=== PATIENT | female | born 1975 | race Caucasian/White ===

== ENCOUNTER 2019-04-21 10:45 | Outpatient (CLI) | payer OTHER, SELFPAY ==
--- NOTE | 2019-04-21 | ECHO_ITS ---
Patient Info Name: Deedee Veliz Age: 43 years : 1975 Gender: Female Ht: 66 in Wt: 150 lbs BSA: 1.79 m2 HR: 81 bpm BP: 122 / 77 mmHg Heart Rhythm: Sinus Rhythm Technical Quality: Good Exam Date: 04/21/2019 12:26 PM Exam Location: [facility] Patient Status: Outpatient Admit Date: 04/21/2019 Staff Ordering Physician: Samir Navarrete MD Industrial Editor: Vi Phelps RDCS Attending Provider: Samir Navarrete MD Exam Type: CA echo doppler color flow Study Info Complete two-dimensional, color flow and Doppler transthoracic echocardiogram is performed. Summary 1. Essentially unremarkable echocardiogram. 2. Trivial amount of tricuspid regurgitation is within physiologic normal limits. Left Ventricle Left ventricular chamber dimension is normal. Left ventricular systolic function is normal, estimated at 60-65%. The left ventricular diastolic function is normal. Right Ventricle Right ventricular chamber dimension is normal. Left Atria Left atrial chamber dimension is normal. Right Atria Right atrial chamber dimension is normal. Aortic Valve The aortic valve is trileaflet. Pulmonic Valve The pulmonic valve is normal. Mitral Valve The mitral valve has normal leaflets. Tricuspid Valve The tricuspid valve leaflets are normal. There is trace tricuspid valve regurgitation. Pericardium/Pleural The pericardium appears normal. Aorta The aortic root size at the sinus of Valsalva is normal. Left Ventricular Outflow Tract Name Value Normal LVOT 2D LVOT Diameter 2.0 cm LVOT Doppler LVOT Peak Gradient 6 mmHg LVOT Mean Gradient 3 mmHg LVOT VTI 23 cm LVOT VTI/AV VTI Ratio 0.8 LVOT Stroke Volume 74 ml LVOT CO 16.2 l/min LVOT CI 9.1 l/min/m2 Pulmonic Valve Name Value Normal PV Doppler PV Peak Gradient 3 mmHg Mitral Valve Name Value Normal MV Doppler MV Decel Wood 445 cm/s2 MV PHT 56 ms MV Area (PHT) 3.9 cm2 4.0-5.0 MV Diastolic Function MV E Peak Velocity 86 cm/s MV A Peak Velocity 51 cm/s MV E/A 1.7 MV Decel Time 193 ms Tricuspid Valve
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
== END 2019-04-21 10:46 | disposition home or self-care (01) ==
PROVIDERS: PCP Family Medicine; Visit Provider Psychiatry & Neurology Neurology
DX: R55 Syncope and collapse (principal)
CPT/HCPCS: 93306; 95816

== ENCOUNTER 2021-09-08 12:33 | Emergency (ER) | payer OTHER, SELFPAY ==
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
[2021-09-08 12:43] VITALS: BP 150/90; PULSE 91; RESP 18; TEMP 36.8; O2SAT 99
[2021-09-08 13:24] LABS: Basophils Absolute Auto 0.1 K/mm3 (0.0-0.1); Basophils Percent Auto 0.7 % (0.2-1.2); Eosinophils Absolute Auto 0.3 K/mm3 (0-0.3); Eosinophils Percent Auto 3.3 % (0-4.4); Hematocrit 42.5 % (37.0-47.0); Hemoglobin 13.6 g/dL (12.0-15.0); Immature Granulocyte Absolute 0.01 K/mm3 (0.00-0.031); Immature Granulocyte Percent A 0.1 % (0-0.5); Lymphocytes Absolute Auto 2.91 K/mm3 (0.9-3.2); Lymphocytes Percent Auto 29.9 % (18.3-44.2); Mean Corpuscular Hemoglobin 28.6 pg (26-34); Mean Corpuscular Volume 89.3 fl (80-100); Mean Platelet Volume 11.4 fl (7.4-10.4); Monocytes Absolute Auto 0.4 K/mm3 (0.1-0.6); Monocytes Percent Auto 4.4 % (2.6-8.5); Neutrophils Percent Auto 61.6 % (45.5-73.1); Platelet Count Result 277 k/mm3 (150-375); Red Blood Count 4.76 M/mm3 (4.2-5.4); White Blood Count 9.7 K/mm3 (4.5-10.0)
[2021-09-08 13:31] LABS: Appearance Urine Slightly Cloudy (Clear); Bilirubin Urine Negative (Negative); Color Urine Yellow (Yellow); Glucose Urine UA Negative (Negative); Ketones Urine Negative (Negative); Leukocyte Esterase Ur Trace LEU/UL (Negative); Nitrate Urine Negative (Negative); Protein Urine Negative (Negative); Urobilinogen Urine 0.2 mg/dL (<2.0)
[2021-09-08 13:35] LABS: Alanine Aminotransferase 13 U/L (6-35); Albumin Level 4.3 g/dL (3.5-5.1); Alkaline Phosphatase 72 U/L (38-126); Anion Gap 3 mmol/L (8-16); Aspartate Amino Transferase 21 U/L (14-36); Bilirubin,Total 0.3 mg/dL (0.2-1.3); Blood Urea Nitrogen 13 mg/dL (7-17); Calcium 9.4 mg/dL (8.4-10.2); Carbon Dioxide 28 mmol/L (22-30); Chloride 106 mmol/L (98-107); Estimated CRCL calculation 95 ml/min; Estimated Glomerular Filt Rate > 60; Glucose 92 mg/dL (65-110); Sodium 137 mmol/L (137-145)
[2021-09-08 13:38] LABS: Mucus Urine Rare /lpf; Squamous Epithelial Cell Urine Many /hpf (Few)
[2021-09-08 13:40] LABS: Acetaminophen < 10 ug/mL (10-30); Ethanol < 10 mg/dL (<10); Salicylate < 1.0 mg/dL (2-20)
[2021-09-08 13:48] LABS: Amphetamine Screen Urine Negative (Negative); Barbiturate Screen Urine Positive (Negative); Benzodiazepines Screen Urine Negative (Negative); Cannabinoid Screen Urine Positive (Negative); Cocaine Screen Urine Negative (Negative); Methadone Screen Urine Negative (Negative); Opiate Screen Urine Negative (Negative); Phencyclidine Screen Urine Negative (Negative)
[2021-09-08 13:54] LABS: Add Urine Microscopic? YES; Blood Urine Trace-Intact (Negative)
[2021-09-08 14:09] LABS: SARS-CoV-2 RNA PCR Negative
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
--- NOTE | 2021-09-08 14:22 | PC.NURSE ---
Called Crisis and spoke with Vivienne. Vivienne states that she is new to this and will let Amaya know
--- NOTE | 2021-09-08 14:22 | PC.NURSE ---
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
--- NOTE | 2021-09-08 16:10 | PC.NURSE ---
pt to be dc on a safety contract per crisis
== END 2021-09-08 16:34 | disposition home or self-care (01) ==
PROVIDERS: Physician Assistant; Emergency Provider Emergency Medicine; PCP Nurse Practitioner Family
DX: F32.A Depression, unspecified (principal); R45.88 Nonsuicidal self-harm; Z20.822 Contact with and (suspected) exposure to COVID-19; F41.9 Anxiety disorder, unspecified; F17.210 Nicotine dependence, cigarettes, uncomplicated
CPT/HCPCS: 36415; 70450; 80053; 80307; 81001; 81025; 84443; 85025; 87086; 99284; C9803; U0003; U0005

== ENCOUNTER → 2022-04-20 10:24 | Outpatient (CLI) | payer OTHER, SELFPAY ==
--- NOTE | ~2022-04-20 | XR_ITS ---
Lumbosacral Spine: AP, oblique, and lateral views Clinical History: Pain Findings: The normal lordotic curve is maintained. The vertebral bodies and posterior elements are i ntact. There is mild to moderate degenerative disc narrowing at L5-S1. Remaining disc spaces are pres erved. The sacroiliac joints are normally outlined. Impression: Degenerative disc narrowing at L5-S1. Reviewed, dictated and finalized at location . NDS GRADER Impression: Degenerative disc narrowing at L5-S1.
--- NOTE | ~2022-04-20 | XR_ITS ---
Cervical Spine: AP, lateral, open-mouth views Clinical History: Pain Findings: There is mild reversal of the normal cervical lordosis. The vertebral bodies and posterior elements appear intact. The intervertebral disc spaces are well maintained. Pre-vertebral soft tiss ues are unremarkable. Impression: Mild reversal of the normal cervical lordosis, otherwise unremarkable exam. Reviewed, dictated and finalized at [facility]. ESTATE AGENT Impression: Mild reversal of the normal cervical lordosis, otherwise unremarkable exam.
== END ==
PROVIDERS: PCP Family Medicine; Visit Provider Nurse Practitioner Family
DX: M54.42 Lumbago with sciatica, left side (principal); M54.41 Lumbago with sciatica, right side; M54.12 Radiculopathy, cervical region
CPT/HCPCS: 72040; 72110

== ENCOUNTER 2022-08-26 08:24 | Outpatient (CLI) | payer OTHER, SELFPAY ==
--- NOTE | ~2022-08-26 | MR_ITS ---
EXAMINATION: MR lumbar spine wo con DATE: 08/26/2022 08:56 INDICATION: Low back pain TECHNIQUE: Magnetic resonance imaging (MRI) of the lumbar spine was performed without intravenous con trast. Sequences included sagittal T2-weighted FSE, sagittal T2-weighted FS FSE, sagittal T1-weighted FSE, and axial T2-weighted FSE. COMPARISON: Lumbar spine radiographs dated 04/20/2022 and MRI dated 10/31/2017 FINDINGS: 8 degree lumbar dextrocurvature. Sagittal alignment is normal. Vertebral body heights are normal. The re are few small Schmorl's nodes in the lower thoracic and upper lumbar spine. T1 hyperintense carmina iomas at T12 and L2. Progression of now moderate left-sided and severe right-sided disc height loss w ith right-sided fibrovascular degenerative endplate changes at L5-S1. Marrow signal is otherwise norm al. Remaining discs are normal. The conus medullaris terminates at L1-L2. There is normal signal in t he caudal spinal cord. Paravertebral soft tissues are unremarkable. The following disc levels are spe cifically discussed: T12-L1: The disc does not extend beyond the endplate margin. There is mild bilateral facet joint oste oarthritis. There is no neural foraminal stenosis. There is no central canal stenosis. L1-L2: The disc does not extend beyond the endplate margin. There is mild bilateral facet joint osteo arthritis. There is no neural foraminal stenosis. There is no central canal stenosis. L2-L3: The disc does not extend beyond the endplate margin. There is mild right facet joint osteoarth ritis. There is no neural foraminal stenosis. There is no central canal stenosis. L3-L4: The disc does not extend beyond the endplate margin. There is mild bilateral facet joint osteo arthritis. There is no neural foraminal stenosis. There is no central canal stenosis. L4-L5: The disc does not extend beyond the endplate margin. There is mild bilateral facet joint osteo arthritis. There is no neural foraminal stenosis. There is no central canal stenosis. L5-S1: Disc is bulging with superimposed annular fissure and left paracentral disc extrusion. There i s mild left and moderate right facet joint osteoarthritis. There is mild to moderate bilateral neural foraminal stenosis. There is mild central canal stenosis. IMPRESSION: 1. Interval progression of now moderate to severe lower lumbar spondylosis. Reviewed, dictated and finalized at location A.
== END 2022-08-26 08:25 | disposition home or self-care (01) ==
PROVIDERS: PCP Nurse Practitioner Family; Visit Provider Nurse Practitioner Family
DX: M79.604 Pain in right leg (principal); M79.605 Pain in left leg; M47.896 Other spondylosis, lumbar region
CPT/HCPCS: 72148

== ENCOUNTER 2023-04-24 13:31 | Outpatient (CLI) | payer OTHER, SELFPAY ==
--- NOTE | ~2023-04-24 | XR_ITS ---
EXAMINATION: XR hip BI 2V w AP pelvis DATE: 04/24/2023 13:58 INDICATION: Sacroiliitis TECHNIQUE: AP view the pelvis and two views of each hip were obtained. COMPARISON: None. FINDINGS: Bone alignment is normal. There is no fracture. The hips are unremarkable. No definite abno rmal erosion or sclerosis of the sacroiliac joints is identified. There are phleboliths of the pelvis . The soft tissues are unremarkable. IMPRESSION: 1. No acute osseous abnormality. Reviewed, dictated and finalized at location L. LING INSTRUCTOR
== END 2023-04-24 13:32 | disposition home or self-care (01) ==
PROVIDERS: PCP Nurse Practitioner Family; Visit Provider Anesthesiology Pain Medicine
DX: M46.1 Sacroiliitis, not elsewhere classified (principal); M47.817 Spondylosis without myelopathy or radiculopathy, lumbosacral region
CPT/HCPCS: 73521

== ENCOUNTER 2023-12-05 13:30 | Outpatient (CLI) | payer OTHER, SELFPAY ==
--- NOTE | ~2023-12-05 | XR_ITS ---
Cervical Spine: AP, lateral, open-mouth views Clinical History: Pain Findings: There is mild reversal of the normal cervical lordosis. The vertebral bodies and posterior elements appear intact. The intervertebral disc spaces are well maintained. Pre-vertebral soft tiss ues are unremarkable. Impression: Mild reversal of the normal cervical lordosis, otherwise unremarkable exam. Reviewed, dictated and finalized at [facility]. Impression: Mild reversal of the normal cervical lordosis, otherwise unremarkable exam.
== END 2023-12-05 13:31 | disposition home or self-care (01) ==
LOC: ANHIMG 13:32
PROVIDERS: PCP Nurse Practitioner Family; Visit Provider Nurse Practitioner Family
DX: M48.8X2 Other specified spondylopathies, cervical region (principal)
CPT/HCPCS: 72040

== ENCOUNTER 2024-01-25 08:26 | Outpatient (CLI) | payer OTHER, SELFPAY ==
--- NOTE | ~2024-01-25 | MR_ITS ---
EXAMINATION: MR hip LT wo con DATE: 01/25/2024 09:27 INDICATION: New onset left hip pain TECHNIQUE: Magnetic resonance imaging (MRI) of the left hip was performed without intravenous contra st. Sequences included full-field axial PD-weighted FS FSE and T1-weighted FSE, coronal of the pelvis with PD-weighted FS FSE, T2-weighted FSE and T1-weighted FSE, small field of view of the left hip w ith axial PD-weighted FS FSE, sagittal PD-weighted FS FSE, coronal PD-weighted FS FSE and coronal T2 weighted FSE. Additional radial T1-weighted FGR oriented orthogonal to the acetabular rim were obtai elicia for evaluation of the labrum. COMPARISON: None FINDINGS: Bones/labrum/cartilage: Alignment is normal. No fracture, avascular necrosis or pathologic marrow replacing process. There i s a full-thickness tear at the 11:00 position of the anterior left acetabular labrum. There is adjace nt partial-thickness fissuring without degenerative subchondral changes at the anterosuperior chondra l labral junction. Articular cartilage is otherwise normal. Severe spondylosis at the lumbosacral garrison ction. Fluid: Symmetric physiologic amount of fluid within both hip joints. Soft tissues: Normal and symmetric muscle bulk and signal in the pelvis and visualized proximal thighs. The iliopso as and gluteal tendons are normal. The uterus is not identified and has likely been surgically resect ed. There is mild tendinopathy without discrete tear at the ischial tuberosity origins of the bilater al proximal hamstring tendons. There is minimal marrow edema at the left initial tuberosity suggest m ore acute mild enthesitis. Limited evaluation of visceral organs of the pelvis is otherwise unremarka ble. No pathologically enlarged pelvic/inguinal lymphadenopathy. IMPRESSION: 1. Minimal left hip osteoarthritis with small focus of moderate grade chondromalacia and associated s mall tear at the anterior acetabulum. 2. Mild enthesopathy at the bilateral proximal hamstring tendon origins with minimal marrow edema con sistent with mild enthesitis at the left initial tuberosity. Reviewed, dictated and finalized at location A. PICKER IMPRESSION: 1. Minimal left hip osteoarthritis with small focus of moderate grade chondroma lacia and associated small tear at the anterior acetabulum. 2. Mild enthesopathy at the bilateral proximal hamstring tendon origins with mi nimal marrow edema consistent with mild enthesitis at the left initial tuberosi ty.
--- NOTE | ~2024-01-25 | MR_ITS ---
Procedure: MR lumbar spine wo con Ordering provider: Mehran Ledbetter DO History: . M25.559 - Pain in unspecified hip . Comparison: None. Technique: MRI of lumbar spine without contrast. FINDINGS: SPINAL CORD: Normal. The cord ends at the level of L1-L2. Slightly prominent central canal of the distal cord opposite T12. VERTEBRAL BODIES: Normal height and alignment. No compression fracture. Normal marrow signal. Hemangi omas are seen in T12-L1 and L2. DISK SPACES: Narrowing of the disc L5-S1. STENOSIS: None. Disc protrusion at the level of L5-S1 with bilateral narrowing of the foramina and nerve root mookie quentin bilaterally more on the right side. PARASPINOUS SOFT TISSUES: Normal. IMPRESSION: No compression fracture or stenosis of the lumbar spine. Focal prominence of the central canal of the cord opposite T12. Hemangiomas in T12, L1 and L2. Disc protrusion at the level of L5-S1 with bilateral narrowing of the foramina and nerve root mookie quentin. Reviewed, dictated and finalized at location A. 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 Focal prominence of the central canal of the cord opposite T12. Hemangiomas in T12, L1 and L2. Disc protrusion at the level of L5-S1 with bilateral narrowing of the foramina and nerve root compression.
== END 2024-01-25 08:27 | disposition home or self-care (01) ==
PROVIDERS: PCP Family Medicine; Visit Provider Family Medicine
DX: M51.27 Other intervertebral disc displacement, lumbosacral region (principal); D18.09 Hemangioma of other sites; M16.12 Unilateral primary osteoarthritis, left hip; M94.252 Chondromalacia, left hip; M79.604 Pain in right leg; M79.605 Pain in left leg; M47.817 Spondylosis without myelopathy or radiculopathy, lumbosacral region; M54.17 Radiculopathy, lumbosacral region
CPT/HCPCS: 72148; 73721

== ENCOUNTER 2024-03-18 06:46 | Day surgery (SDC) | payer OTHER, SELFPAY ==
[2024-02-14 14:10] VITALS: BMI 24.5
--- NOTE | ~2024-03-18 | XR_ITS ---
EXAMINATION: XR fluoroscopy no charge DATE: 03/18/2024 08:29 INDICATION: Right L4-L5 and L5-S1 transforaminal epidural steroid injection TECHNIQUE: Total of 74 fluoroscopic images of the lumbar spine were obtained during procedure perform ed by Dr. Lopes. Radiologist was not present for the imaging or procedure. The amount of fluoroscopy t deacon used during this procedure was 0.3 minutes. COMPARISON: None. FINDINGS: Images demonstrate needles advanced to the right L4-L5 and L5-S1 neural foramina. Subsequent images d emonstrate contrast injected through the needles extending along the exiting nerve roots at both leve ls. No evident intravascular extension of contrast. IMPRESSION: 1. Fluoroscopy utilized during right L4-L5 and L5-S1 transforaminal epidural injections. See procedur e note for further detail. Reviewed, dictated and finalized at location A. [facility] IMPRESSION: 1. Fluoroscopy utilized during right L4-L5 and L5-S1 transforaminal epidural in [facility]. See procedure note for further detail.
--- NOTE | 2024-03-18 05:26 | PM.HPGS ---
History of Present Illness History of Present Illness Consent: Risks, benefits, and alternatives have been discussed and questions answered. Patient agrees to proceed with procedure. Chief complaint: lumbosacral radiculopathy Narrative: Deedee Johansen is a 48 year old female with chronic, recalcitrant and disabling right-sided lumbosacral lower extremity pain secondary to lumbosacral radiculopathy with failure to respond to aggressive conservative measures including PT, oral and topical analgesics, opioid and nonopioid analgesics, rest, time and activity/behavioral modification over the past 6-12 months or longer who presents for transforaminal epidural steroid injection of the right L4-5, L5-S1 neural foramen under fluoroscopic guidance and with contrast control. Review of Systems Review of Systems: Patient denies any new infectious, allergic, cardiopulmonary, neurologic or constitutional symptoms or changes in activity tolerance or exercise capacity including new or progressive SOB/ULLOA, peripheral edema, productive cough, dysuria, nausea/vomiting, diarrhea, weight change, fevers/chills/night sweats, new or progressive neurologic deficit, cognitive or mood changes since last seen, except as documented in the HPI. All systems reviewed & are unremarkable except as noted in HPI and below PMFSH Past Medical History Medical History (Updated 01/29/24 @ 13:02 by Mehran Ledbetter DO) Low back pain radiating to both legs Otitis media of left ear Radiculitis, cervical Cervicalgia Insomnia Chronic low back pain with bilateral sciatica Anxiety with depression Migraine headache without aura Encounter to establish care Low back pain Frequent headaches Anxiety Seasonal allergies Surgical History Surgical History (Updated 11/29/23 @ 15:58 by Stephanie Ac APRN) Hx of hysterectomy 2023 for menorrhagia, ovaries spared Hx of hernia repair Hx of hand surgery History of back surgery Hx LEEP (loop electrosurgical excision procedure), cervix, Hx of tubal ligation Family History Family History Father Depression Cancer Mother Depression Lung cancer Grandparent Asthma Depression Breast cancer Schizophrenia Other Cancer Son Diabetes mellitus Social History Social History Smoking packs per day: 1 Smoking cigarettes per day: 20.0 Years smoked: 25 Smoking pack-years: 25.00 Smoking status: Current every day smoker Tobacco type: cigarettes Second hand tobacco smoke exposure: Yes Alcohol intake: current Alcohol use details: Rarely Substance use: current Substance use type: marijuana Lack of Transportation: YES Lack of Food: Sometimes True Current Housing: I Have Housing Concerned About Future Housing: No Difficulty Paying Gas/Electric Bills: YES Difficulty Paying for Meds: No Currently Unemployed: No Education: High School Diploma/GED Difficulty w/ Childcare or Family Care: No Living arrangements: with family Spiritual care concerns: No Meds Home Medications and Allergies Home Medications ?Medication ?Instructions ?Recorded ?Confirmed ?Type albuterol sulfate 90 mcg/actuation 1 puff inhalation Q4H PRN 11/11/20 02/14/24 History aerosol inhaler shortness of breath or wheezing fluticasone propionate 50 1 spray intranasal BID #16 grams 04/05/22 02/14/24 Rx mcg/actuation nasal spray,suspension (Flonase Allergy Relief) cetirizine 10 mg tablet (Zyrtec) 10 mg PO DAILY PRN allergy 04/18/23 02/14/24 Rx symptoms #30 tabs montelukast 10 mg tablet 10 mg PO DAILY #30 tabs 05/29/23 02/14/24 Rx (Singulair) buspirone 15 mg tablet 15 mg PO TID #90 tabs 07/25/23 02/14/24 Rx cyclobenzaprine 10 mg tablet 10 mg PO BID PRN muscle spasm #60 07/25/23 02/14/24 Rx tabs tramadol 50 mg tablet 50 mg PO Q8H PRN pain #90 tabs 11/29/23 02/14/24 Rx qlafrlbfvx-hqkaipwfxhrhk-bxwhfgmk 1 cap PO Q8H PRN pain #60 caps 01/07/24 02/14/24 Rx 50 mg-300 mg-40 mg capsule (Fioricet) duloxetine 60 mg capsule,delayed 60 mg PO DAILY #30 caps 01/29/24 02/14/24 Rx release celecoxib 200 mg capsule 200 mg PO BID PRN pain #60 caps 02/18/24 03/11/24 Rx gabapentin 600 mg tablet 600 mg PO TID #90 tabs 03/05/24 03/11/24 Rx Allergies Allergy/AdvReac Type Severity Reaction Status Date / Time No Known Allergies Allergy Verified 03/11/24 11:23 Exam Narrative: The patient's physical exam is essentially unchanged from prior examination on 01/21/2024. Specifically, patient demonstrates normal lung capacity, tidal volume and respiratory rate without wheezes, crackles, rales or rubs. Heart rate and rhythm are regular without murmurs, gallops or rubs. No JVD. Pulses 2+ globally without increasing peripheral edema. AAOx3 with no evidence of confusion, intoxication or altered mental state, NC/AT without acute distress or altered consciousness. Speech, cognition, mood, insight and judgment at baseline and within normal limits. Assessment and Plan Assessment and plan (1) Lumbosacral radiculopathy: Code(s): M54.17 - Radiculopathy, lumbosacral region Status: Acute Assessment and Plan: proceed as planned with right-sided L4-5, L5-S1 transforaminal epidural steroid injection under fluoroscopic guidance with contrast control (2) Chronic pain: Code(s): G89.29 - Other chronic pain Status: Acute
--- NOTE | 2024-03-18 05:30 | WPDHPUPDATE1 ---
History and Physical Update Update Date/Time: 03/18/24 05:30 History and Physical has been reviewed, including an updated exam of the patient. There are NO changes in the patient's condition. Risks, benefits, and alternatives have been discussed and questions answered. Patient agrees to proceed with procedure.
--- NOTE | 2024-03-18 05:31 | P.OP_ITS ---
Procedure Note - Detailed Date of Procedure 03/18/24 Pre-op Diagnosis lumbosacral radiculopathy Post-op Diagnosis Same Procedure Performed Right lumbosacral Transforaminal Epidural Steroid Injection under Fluoroscopic Guidance and with Contrast Control at L4-5, L5-S1. Surgeon Pradeep Lopes MD Anesthesia Local Description of Procedure INFORMED CONSENT: Risks, benefits and alternatives to the procedure were discussed in detail with the patient who expressed explicit understanding and consent to proceed. Patient was informed verbally and in written form regarding the risks associated with the procedure including the low risk of serious infection, bleeding/bruising, allergic reaction, nerve or organ injury, paralysis, procedural site pain or discomfort, worsening pain and/or mobility, failure to treat and/or disfigurement. The patient expressed explicit understanding and consent to proceed. All materials required for the procedure were available prior to procedure start. Site and side was marked prior to procedure and confirmed in the presence of the patient. PROCEDURE IN DETAIL: The patient was brought to the procedural suite and placed in the prone position. Patient was made comfortable with use of pillows under the head/chest, hips and ankles. Skin overlying the injection site was prepared broadly with ChloraPrep applicator and draped in a sterile manner. Aseptic technique was employed throughout. The endplates of the vertebral body at the site of interest were aligned in the AP view. Ipsilateral oblique angulation was utilized to better visualize the neuroforamen of interest. Local anesthesia was established by infiltration with approximately 5 mL of 0.5% PF lidocaine via a 1-1/2 inch 27-gauge needle. A 22-gauge 3.5 inch Dana (pencil point) spinal needle was advanced until the needle approached the 6 o'clock position on the pedicle just superior to the exiting nerve root. on the right at L4-5. Lateral view was utilized to confirm appropriate position of the needle tip within the superior and posterior portion of the respective foramen. In an AP view, 1 mL of Omnipaque 300 contrast medium was injected after negative aspiration for CSF, blood or other bodily fluid, showing appropriate neurogram without evidence of intravascular or intrathecal spread of contrast. Digital subtraction imaging was used with an additional 1ml of the same contrast medium to confirm absence of intravascular contrast spread. A 1mL solution containing 3 mg of betamethasone was injected after negative repeat aspiration. Appropriate spread of the injectate was confirmed with washout of previously injected contrast. No parasthesias were elicited. Needle was removed completely intact without difficulty. The same exact procedure was repeated for all remaining levels on the ipsilateral side, right L5-S1 neuroforamen, modified as necessary to accommodate for the new target location with identical findings and results and no evidence of complication. Images were saved and documented in the patient chart. Patient's skin was cleaned and sterile bandage applied. The patient tolerated the procedure well. The patient was transported to the recovery area in stable condition where they were observed for an appropriate amount of time prior to discharge, without evidence of complication. The patient was instructed to avoid excessive activity for the next 48 hours, including climbing and frequent use of stairs. Showers only for 48 hours. They w ere instructed not to drive or operate heavy machinery for 24 hours. They are to monitor for severe headaches, fevers, chills, night sweats, erythema/swelling at the site or any other signs of infection, bleeding/bruising, bowel or bladder changes as well as new pain, weakness or numbness in the upper or lower extremity. Should they notice these changes, they are instructed to call our office immediately or report directly to the nearest Emergency Department if no answer or if after posted office hours. COMPLICATIONS: None COMMENTS: None CONTRAST WASTED: 26 mL Omnipaque 300. STEROID WASTED: 0 mg of betamethasone. Complications No immediate complications Condition Stable Disposition Same day [facility] Billing Surgery - Charge Forward: Surgery Billing
[2024-03-18 07:27] VITALS: BP 148/98; PULSE 80; RESP 15; TEMP 37.1; O2SAT 97
[2024-03-18 08:20] VITALS: BP 172/79; PULSE 70; RESP 15; O2SAT 96
[2024-03-18] MEDS: LIDOCAINE 2% PF LOCAL INJ 5 ML VIAL 1 ML INFILTRATE (08:25)
[2024-03-18] MEDS: BETAMETHASONE SODIUM PHOSPHATE PF INJ 6 MG/ML VIAL INFILTRATE (08:25)
[2024-03-18 08:27] VITALS: BP 151/92; PULSE 71; RESP 13; O2SAT 97
[2024-03-18] MEDS: LIDOCAINE 1% PF INJ 5 ML VIAL 2.5 ML INFILTRATE (08:28)
[2024-03-18 08:32] VITALS: BP 150/89; PULSE 77; RESP 16; O2SAT 100
--- OUTSIDE RECORDS SUMMARY | 2024-03-20 15:30 | XMS_ITS | Referral Summary ---
Author Organization [facility] [employer] Address [address] [place] [address] Care Team Providers Care Director Alumni Relations Name Role Phone Ciera Sosa MD Primary Care Provider Source Comments [facility],non-owned Affiliates and Associated Physician Practices is amultiple site organization consisting of ambulatory clinics and hospital sitesin [place], [place], [place] and [place]. This disclosure is being madepursuant to the Care Everywhere program and may not contain all information available regarding this patient. Last updated 17.[facility] Allergies No known active allergies Medications * Be aware that medications may not be up to date on this document. Alwaysverify current medications with the patient. Medication Sig Dispensed Refills Start Date End Date Status cyclobenzaprine (FLEXERIL) 5 MG tablet Take 2 (two) tablets by mouth TID 01/09/2017 Active Butalbital-Acetamin ophen 50-300 MG Take by mouth. 01/09/2017 Activ e montelukast (SINGULAIR) 10 MG tablet Take 1 (one) tablet by mouth DAILY 01/09/2017 Active busPIRone (Buspar) 15 MG tablet 11/02/2021 Active cetirizine (ZyrTEC) 10 MG tablet 12/05/2021 Active ibuprofen (Motrin) 800 MG tablet 11/26/2021 Active citalopram (CeleXA) 40 MG tablet 12/05/2021 Active triamcinolone acetonide (Kenalog) 0.5 % cream APPLY TOPICALLY TWICE A DAY NEEDED FOR ITCHING DO NOT USE FOR MORE THAN 2 WEEKS AT A TIME 01/10/2021 Active fluticasone propionate (Flonase) 50 MCG/ACT nasal spray 08/04/2021 Activ e butalbital-acetamin ophen-caffeine (Fioricet) 50-300-40 MG capsule TAKE 1 CAPSULE BY MOUTH ONCE EVERY 8 HOURS NEEDED FOR HEADACHE 12/22/2020 Active tiZANidine (Zanaflex) 4 MG tablet Take 1 (one) tablet by mouth 3 times daily as needed For muscle spasms. 09/09/2022 Active oxyCODONE, immediate release, (Roxicodone) 5 MG tabletIndications:P reop testing Take 1 (one) tablet by mouth every 4 hours as needed for Pain 15 tablet 10/04/2022 Active ibuprofen (Motrin) 600 MG tablet Take 1 (one) tablet by mouth every 6 hours as needed for Pain 30 tablet 10/04/2022 Active senna-docusate (Senokot-S) 8.6-50 MG tablet Take 1 (one) tablet by mouth 2 times daily 30 tablet 10/04/2022 Active cephalexin (Keflex) 500 MG capsule Take 1 (one) capsule by mouth 4 times daily 28 capsule 10/12/2022 Active Active Problems Problem Noted Date Diagnosed Date Other intervertebral disc degeneration, lumbar r egion 01/09/2017 Postlaminectomy syndrome, not elsewhere classifi ed 01/09/2017 Immunizations Name Administration Dates Next Due TDAP (7yrs+) 01/29/2017 Social History Tobacco Use Types Packs/Day Years Used Date Smoking Tobacco: Every Day Cigarettes Smokeless Tobacco: Never Tobacco Cessation:Ready to Q uit: Not Asked; Counseling Given: Not Answered Alcohol Use Standard Drinks/Week Comments No 0 (1 standard drink = 0.6 oz pur e alcohol) PHQ-2 Answer Date Recorded PHQ2 TOTAL SCORE 2 09/01/2022 Sex and Gender Information Value Date Recorded Sex Assigned at Female 02/13/2022 12:43 PM NEUROCRITICAL CARE PHYSICIAN Gender Identity Female 02/13/2022 12:43 PM NEUROCRITICAL CARE PHYSICIAN Sexual Orientation Straight 02/13/2022 12 :43 PM NEUROCRITICAL CARE PHYSICIAN Last Filed Vital Signs Vital Sign Reading Time Taken Comments Blood Pressure 112/80 11/27/2022 2:51 PM CDT Pulse 63 10/04/2022 12:05 PM CDT Temperature 36.3 ??C (97.4 ??F) 10/04/2022 11:34 AM C DT Respiratory Rate 18 10/04/2022 12:05 PM CDT Oxygen Saturation 100% 10/04/2022 12:05 PM CDT Inhaled Oxygen Concentration - - Weight 64.4 kg (142 lb) 11/27/2022 2:51 PM CDT Height 167.6 cm (5' 6 ) 11/27/2022 2:51 PM CDT Body Mass Index 22.92 11/27/2022 2:51 PM CDT Plan of Treatment Not on file Care Teams Director Alumni Relations Relationship Specialty Start Date End Date Ciera Sosa MD PCP - General 03/16/17
--- OUTSIDE RECORDS SUMMARY | 2024-03-20 15:30 | XMS_ITS | Continuity of Care Document ---
Author Organization [facility] Address [address] [place] [address] [address] [place] [address] Phone Care Team Providers Care Internship Name Role Phone Doisy, Edward Unavailable Unavailable Advance Directives Directive Yes / No Effective Date File Name No Information Encounters Encounter Description Practice Location Reason(s) For Visit Diagnoses Date Provider Providers Copied on Encounter [facility], [address], [place], [place], [id number], [place] tel:[phone] [facility] No Information [phone] Doisy Edward. [address] , [address], [place], [address], [place]. tel:[phone] Family History Family Member Type Diagnosis Age At Onset No Information Payers Payer name Insurance type Covered democrat ID Authorsoniaa tievelin(s) Medicaid COUNTS INCLUDE [facility]S [facility] [id number] Social History Type Description Quantity Date Captured Comments Sex Female Smoking Status No Information Chief Complaint And Reason For Visit No Information Reason For Referral Reason For Referral No Information History Of Present Illness Encounter Date Complaint History Of Prese nt Illness No Information Functional Status Date Functional Assessmen t No Information Instructions Date Instruction Additional Infor mation No Information Assessments Type Assessment Date No Information Patient Care Teams Name Effective Dates (start - stop) Status Members No Information
--- OUTSIDE RECORDS SUMMARY | 2024-03-20 15:30 | XMS_ITS | Encounter Summary ---
Author Organization [facility] Address [address] [place] [address] Care Team Providers Care Dental Office Manager Name Role Phone Ciera Sosa MD Primary Care Provider Reason for Visit * Reason Onset Date Comments Surgical Follow-up 11/01/2022 Encounter Details Date Type Department Care Team (Late st Contact Info) Description 11/01/2022 Telephone [facility] [address] [place] [address] Nathalia Ocampo MD [address] [place] [id number] Surgical Follow-up Social History Tobacco Use Types Packs/Day Years Used Date Smoking Tobacco: Every Day Cigarettes Smokeless Tobacco: Never Alcohol Use Standard Drinks/Week Comments No 0 (1 standard drink = 0.6 oz pur e alcohol) PHQ-2 Answer Date Recorded PHQ2 TOTAL SCORE 2 09/01/2022 Sex and Gender Information Value Date Recorded Sex Assigned at Female 02/13/2022 12:43 PM AGED OR DISABLED CARE WORKER Gender Identity Female 02/13/2022 12:43 PM AGED OR DISABLED CARE WORKER Sexual Orientation Straight 02/13/2022 12 :43 PM AGED OR DISABLED CARE WORKER documented as of this encounter Miscellaneous Notes * Telephone Encounter - Nathalia Ocampo MD - 11/01/2022 12:23 PM CDT Agree, thanks. * Telephone Encounter - Petra Caro RN - 11/01/2022 10:46 AM CDT RN called pt. Pt needing post op appt from [facility]. Pt scheduled for 11/27/2022 3:00 PM Nathalia Ocampo MD Pt accepts appt * Telephone Encounter - [place] Self - 11/01/2022 8:45 AM CDT Pt is calling office to schedule a 8 week post op appt the next available is too late for her Pt CB# [phone] Alt CB# [phone] documented in this encounter Plan of Treatment Not on file documented as of this encounter Visit Diagnoses Not on filedocumented in this encounter Care Teams Dental Office Manager Relationship Specialty Start Date End Date Ciera Sosa MD PCP - General 03/16/17 documented as of this encounter
--- OUTSIDE RECORDS SUMMARY | 2024-03-20 15:30 | XMS_ITS | Clinical Summary ---
Author Organization [facility] [employer] Address [address] [place] [address] Care Team Providers Care Signal Constructor Name Role Phone Ciera Sosa MD Primary Care Provider Source Comments [facility] [employer],non-owned Affiliates and Associated Physician Practices is amultiple site organization consisting of ambulatory clinics and hospital sitesin [place], [place], [place] and [place]. This disclosure is being madepursuant to the Care Everywhere program and may not contain all information available regarding this patient. Last updated 17.[facility] [employer] Allergies No known active allergies Medications * [...] Administration Dates Next Due TDAP (7yrs+) 01/29/2017 Family History Medical History Relation Name Comments Cancer Father Seizures Father Leukemia Maternal Aunt Cancer - Breast Maternal Grandfather Depression Maternal Grandfather Cancer - Breast Mother Cancer - Lung Mother Status: Deceas ed Depression Mother Diabetes - Type 1 Mother Cancer Other lung, breast, b lood Relation Name Status Comments Father Maternal Aunt Maternal Grandfather Mother Other Social History Tobacco Use Types Packs/Day Years [...] Sex Assigned at Female 02/13/2022 12:43 PM FORMULATION TECHNICIAN Gender Identity Female 02/13/2022 12:43 PM FORMULATION TECHNICIAN Sexual Orientation Straight 02/13/2022 12 :43 PM FORMULATION TECHNICIAN Last Filed Vital Signs Vital Sign Reading [...] 11/27/2022 2:51 PM CDT Plan of Treatment Health Maintenance Due Date Last Done Comments COLOGUARD (AGES 45-75) - COLON CA SCREENING 1977 COLON MONITORING 1977 COLONOSCOPY - COLON CA SCREENING 1977 CT COLONOGRAPHY - COLON CA SCREENING 1977 Colorectal Cancer Screening 1977 FIT - COLON CA SCREENING 1977 FLEX SIG - COLON CA SCREENING 1977 LIPID TESTING 1977 MAMMOGRAM 1977 HIV SCREENING 1992 HEPATITIS C SCREENING 05/13/1995 HEPATITIS B VACCINE (1 of 3 - 19+ 3-dose series) 1996 PNEUMOCOCCAL VACCINE (1 of 2 - PCV) 1996 COVID-19 VACCINE ( - season) 2023 INFLUENZA VACCINE (#1) 2023 9, 11/08/2010, 01/31/2010, Additional history exists DEPRESSION SCREENING 02/27/2024 09/01/2022 DTAP/TDAP/TD VACCINES (2 - Td or Tdap) 01/29/2027 01/29/2017 ZOSTER VACCINE (1 of 2) 05/18/2027 HIB VACCINE Aged Out No longer eligi ble based on patient's age to complete this topic HPV VACCINE Aged Out No longer eligi ble based on patient's age to complete this topic MENINGOCOCCAL (Group B) VACCINE Aged Out No longer eligible based on patient's age to complete this topic MENINGOCOCCAL VACCINE Aged Out No rishi kendrick eligible based on patient's age to complete this topic Care Teams Signal Constructor Relationship Specialty Start Date End Date Ciera Sosa MD PCP - General 03/16/17
--- OUTSIDE RECORDS SUMMARY | 2024-03-20 15:30 | XMS_ITS | Patient Health Summary ---
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 ORDERABLES * DAIJA DIRECT (01/29/2017 4:38 PM POCKET GRINDER OPERATOR) Direct Daija (MARIBELL) NEG [facility] Blood specimen (specimen) 01/29/2017 4:38 PM POCKET GRINDER OPERATOR 01/29/2017 4:38 PM POCKET GRINDER OPERATOR Jaclyn Abraham MD LAB - BLOOD BANK ORD ERABLES [facility] [address] * ANTIBODY IDENTIFICATION (01/29/2017 4:38 PM POCKET GRINDER OPERATOR) Antibody 1 POS, Anti-NDS (No Disce [facility] Blood specimen (specimen) 01/29/2017 4:38 PM POCKET GRINDER OPERATOR 01/29/2017 4:38 PM POCKET GRINDER OPERATOR Jaclyn Abraham MD LAB - BLOOD BANK ORD ERABLES Performing Organization Address [facility] Co de Phone Number [facility] [address] * XR PELVIS 1 OR 2VW (01/29/2017 4:34 PM POCKET GRINDER OPERATOR) Anatomical Region Laterality Modality Pelvis Other Impressions 01/30/2017 9:33 AM POCKET GRINDER OPERATOR IMPRESSION: No acute fracture identified. This report was dictated by Qasim Mast M.D. (resident). I, Dr. CYNTHIA BOLTON M.D. have personally reviewed and interpreted this examination/study. This report was electronically signed by CYNTHIA BOLTON M.D. ??on 01/30/2017 9:33 AM . Narrative 01/30/2017 9:33 AM POCKET GRINDER OPERATOR EXAMINATION: PX PELVIS 1 OR 2 VW HISTORY: Trauma FINDINGS: No prior study is available for comparison at the time of this dictation. There is no fracture or dislocation. The femoral heads appear well-seated within their respective acetabula. The pubic symphysis is intact. Bone density and texture are normal. The sacroiliac joints are normal. Procedure Note Cynthia Bolton MD - 05/25/2017 EXAMINATION: PX PELVIS 1 OR 2 VW HISTORY: Trauma FINDINGS: No prior study is available for comparison at the time of thisdictation. There is no fracture or dislocation. The femoral heads appear well-seatedwithin their respective acetabula. The pubic symphysis is intact. Bonedensity and texture are normal. The sacroiliac joints are normal. IMPRESSION IMPRESSION: No acute fracture identified. This report was dictated by Qasim Mast M.D. (resident). Dr. CYNTHIA Martines M.D. have personally reviewed and interpreted thisexamination/study. This report was electronically signed by CYNTHIA BOLTON M.D. on 01/30/20179:33 AM . Yrn Blunt DO DIAGNOSTIC IMAGING O RDERABLES * XR CHEST 1VW PORTABLE (01/29/2017 4:33 PM POCKET GRINDER OPERATOR) Anatomical Region Laterality Modality Chest Other Impressions 01/30/2017 9:31 AM POCKET GRINDER OPERATOR IMPRESSION: No prior study is available for comparison at the time of this dictation. There is no consolidation, pleural effusion, or pneumothorax. ??The cardiomediastinal silhouette is ??normal. The visible bony thorax is intact. This report was dictated by Qasim Mast M.D. (resident). IDr. CYNTHIA M.D. have personally reviewed and interpreted this examination/study. This report was electronically signed by YCNTHIA BOLTON M.D. ??on 01/30/2017 9:31 AM . Narrative 01/30/2017 9:31 AM POCKET GRINDER OPERATOR CHEST EXAMINATION: PX CHEST 1 VW HISTORY: trauma FINDINGS/ Procedure Note Cynthia Bolton MD - 05/25/2017 CHEST EXAMINATION: PX CHEST 1 VW HISTORY: trauma FINDINGS/ IMPRESSION IMPRESSION: No prior study is available for comparison at the time of thisdictation. There is no consolidation, pleural effusion, or pneumothorax. Thecardiomediastinal silhouette is normal. The visible bony thorax isintact. This report was dictated by Qasim Mast M.D. (resident). Dr. CYNTHIA Martines M.D. have personally reviewed and interpreted thisexamination/study. This report was electronically signed by CYNTHIA BOLTON M.D. on 01/30/20179:31 AM . Yrn Blunt DO DIAGNOSTIC IMAGING O RDERABLES * PTT SLU (01/29/2017 4:24 PM POCKET GRINDER OPERATOR) APTT 27.3 23.0 - 38.4 Seconds [facility] Comment:Suggested therapeuti c range for full dose I.V. heparin therapy for venous thromboembolism is 66.0-91.0 seconds. Blood specimen (specimen) BLOOD SPECIMEN / Unknown 01/29/2017 4:24 PM POCKET GRINDER OPERATOR 01/29/2017 4:29 PM POCKET GRINDER OPERATOR Narrative [facility] - 01/29/2017 4:52 PM POCKET GRINDER OPERATOR Please ensure that the aPTT specimen is received in the clinical lab within 1 hour of collection if it is used for therapeutic heparin monitoring. Processing of heparinized specimens older than 1 hour may result in inaccurate test results. Is patient on Heparin, Argatroban or Dabigatran?->N Yrn Blunt DO LAB - COAGULATION OR DERABLES Performing Organization Address [facility] de Phone Number [address] [phone] * PT-INR [facility] (01/29/2017 4:24 PM POCKET GRINDER OPERATOR) PT 13.6 12.1 - 14.8 Seconds [facility] INR 1.1 See Comment [facility] Comment: Suggested therapeutic range for low-intensity coumadin therapy for venous thromboembolism prophylaxis is an INR of 2.0-3.0. ??For high risk patients (Mitral Valve Prosthesis, Atrial Fibrillation, history of TIA/stroke), suggested prophylactic therapeutic range is an INR of 2.5-3.5. Blood specimen (specimen) BLOOD SPECIMEN / Unknown 01/29/2017 4:24 PM POCKET GRINDER OPERATOR 01/29/2017 4:29 PM POCKET GRINDER OPERATOR Narrative [facility] - 01/29/2017 4:51 PM POCKET GRINDER OPERATOR Is patient on Heparin, Argatroban or Dabigatran?->N Yrn Blunt DO LAB - COAGULATION OR DERABLES Performing Organization Address [facility] Co de Phone Number [address] [phone] * (ABNORMAL) COMPREHENSIVE METABOLIC PANEL (01/29/2017 4:24 PM POCKET GRINDER OPERATOR) BUN 11 7 - 26 mg/dL [facility] Creatinine 0.7 0.6 - 1.2 mg/dL [facility] Sodium 139 136 - 145 mmol/L [facility] Potassium 3.6 3.5 - 4.5 mmol/L [facility] Chloride 106 98 - 107 mmol/L [facility] CO2 23 22 - 29 mmol/L [facility] Glucose 93 70 - 115 mg/dL [facility] Calcium 9.6 8.4 - 10.2 mg/dL [facility] Protein Total 7.5 6.0 - 8.3 g/dL [facility] Albumin 3.8 3.4 - 5.0 g/dL [facility] Bilirubin Total 0.4 0.2 - 1.2 mg/dL [facility] Alkaline Phosphatase 69 40 - 150 Units/L [facility] ALT <5 0 - 55 Units/L [facility] AST 11 5 - 34 Units/L [facility] Anion Gap 14 8 - 18 [facility] BUN/Creatinine Ratio 16 7 - 23 [facility] Osmolality Calculated 287 270 - 300 mOsm/kg [facility] Albumin/Globulin Ratio 1.0(L) 1.1 - 2.3 [facility] eGFR >60 >60 mL/min/1.7 3 m2 [facility] Blood specimen (specimen) BLOOD SPECIMEN / Unknown 01/29/2017 4:24 PM POCKET GRINDER OPERATOR 01/29/2017 4:29 PM POCKET GRINDER OPERATOR Yrn Blunt DO LAB - CHEMISTRY [facility] Organization Address City/State/[facility] Co de Phone Number [address] [phone] * ALCOHOL ETHYL BLOOD (01/29/2017 4:24 PM POCKET GRINDER OPERATOR) Pathologist [facility] Interpretation Ethanol None Detected None Detected mg/dL [facility] Comment:Ethanol levels less than 10 mg/dL are resulted as None detected . Blood specimen (specimen) BLOOD SPECIMEN / Unknown 01/29/2017 4:24 PM POCKET GRINDER OPERATOR 01/29/2017 4:29 PM POCKET GRINDER OPERATOR Yrn Blunt DO LAB - CHEMISTRY LESLIE WILKS [facility] [address] [place] [address], [facility] [phone] * XR LUMBAR SPINE 4VW OR MORE (01/01/2017 1:08 PM POCKET GRINDER OPERATOR) Anatomical Region Laterality Modality Spine Other Impressions 01/03/2017 2:31 PM POCKET GRINDER OPERATOR IMPRESSION: No acute fracture or subluxation identified. Dictated by Aditi Metz MD (residential worker). Dr. TYREL Martines M.D. have personally reviewed and interpreted this examination/study. This report was electronically signed by TYREL JURADO M.D. ??on 01/03/2017 2:31 PM . Narrative 01/03/2017 2:31 PM POCKET GRINDER OPERATOR EXAMINATION: XR SPINE LUMBAR 4 VW MIN HISTORY: back pain COMPARISON: No prior study is available for comparison. FINDINGS: The vertebral bodies are normally aligned. There is no fracture or compression deformity. The intervertebral disc spaces are maintained. The sacroiliac joints are normal. Procedure Note Tyrel Jurado MD - 05/25/2017 EXAMINATION: XR SPINE LUMBAR 4 VW MIN HISTORY: back pain COMPARISON: No prior study is available for comparison. FINDINGS: The vertebral bodies are normally aligned. There is no fracture orcompression deformity. The intervertebral disc spaces are maintained. Thesacroiliac joints are normal. IMPRESSION IMPRESSION: No acute fracture or subluxation identified. Dictated by Aditi Metz MD (residential worker). Dr. TYREL Martines M.D. have personally reviewed and interpreted thisexamination/study. This report was electronically signed by TYREL JURADO M.D. on01/03/2017 2:31 PM . Yana Otero PA-C DIAGNOSTIC [facility] ORDERABLES Care Teams Tile Ditcher Relationship Specialty Start Date End Date Ciera Sosa MD PCP - General 03/16/17
--- OUTSIDE RECORDS SUMMARY | 2024-03-20 15:30 | XMS_ITS | Continuity of Care Document ---
Author Organization [facility] Address [address] [place] [address] Phone Care Team Providers Care Criminal Records Technician Name Role Phone Unavailable Unavailable Unavailable Advance Directives Directive Yes / No Effective Date File Name No Information Encounters Encounter Description Practice Location Reason(s) For Visit Diagnoses Date Provider Providers Copied on Encounter [facility], [address], [place], [place], [id number], [place] tel:[phone] [facility] No Information No Information Referring Provider: IRON Cuevas, [address], [place], [address]. tel:[phone] Family History Family Member Type Diagnosis Age At Onset No Information Payers Payer name Insurance type Covered green party ID Authoriza nereida(s) [employer] [facility] [employer] [facility] [place] [id number] CI [id number] Social History Type Description Quantity Date Captured Comments Sex Female Smoking Status No Information Chief Complaint And Reason For Visit No Information History Of Present Illness Encounter Date Complaint History Of Prese nt Illness No Information Instructions Date Instruction Additional Infor mation No Information Assessments Type Assessment Date No Information
--- OUTSIDE RECORDS SUMMARY | 2024-03-20 15:31 | XMS_ITS | Continuity of Care Document ---
Author Organization [facility] Address [address] [address] [place] [address] Phone Care Team Providers Care Aircraft Painter Apprentice Name Role Phone Darryn Seo MD Unavailable Unavailable Allergies, Adverse Reactions, Alerts Substance Reaction Status Criticality No Known Allergies Active No Inform ation Medications Medication Instructions Dosage Effective Dates (start - stop) Status Comments Lorcet 10/650 10-650 mg tablet take 1 tablet by oral route 3 times every day as needed for pain - Active avoid driving or operate machines Xanax 0.5 mg tablet take 1 tablet (0.5MG) by oral route 3 times every day 0.5 MG - Active avoid driving or operate machines Topamax 100 mg tablet take 1 Tablet (100MG) by oral route 2 times every day 100 MG - Active Celexa 20 mg tablet take 1 tablet (20MG) by oral route every day 20 MG - Active ProAir HFA 90 mcg/actuation Aerosol Inhaler inhale 2 puff by inhalation route every 4 - 6 hours as needed - Active Singulair 10 mg tablet take 1 tablet (10MG) by oral route every day in the evening 10 MG - Active Flexeril 10 mg tablet take 1 tablet (10MG) by oral route 3 times every day 10 MG - Active avoid driving or operate machines Procedures Procedure Date OFFICE/OUTPATIENT VISIT, EST OFFICE/OUTPATIENT VISIT, EST OFFICE/OUTPATIENT VISIT, EST OFFICE/OUTPATIENT VISIT, EST OFFICE/OUTPATIENT VISIT, EST OFFICE/OUTPATIENT VISIT, EST OFFICE/OUTPATIENT VISIT, EST OFFICE/OUTPATIENT VISIT, EST OFFICE/OUTPATIENT VISIT, EST PREV VISIT, EST, AGE 18-39 OFFICE/OUTPATIENT VISIT, EST OFFICE/OUTPATIENT VISIT, EST OFFICE/OUTPATIENT VISIT, EST OFFICE/OUTPATIENT VISIT, EST Advance Directives Directive Yes / No Effective Date File Name No Information Encounters Encounter Description Practice Location Reason(s) For Visit Diagnoses Date Provider Providers Copied on Encounter [facility], [address], [place], [place], [address], [place] tel:[phone] [facility] No Information 3 Rayray Cates. [address], [place], [place], [address] , [place]. tel:[phone] Referring Provider: Darryn Seo [address], [place], [place], [address]. tel:[phone] OFFICE/OUTPA TIENT VISIT, EST [facility], [address], [place], [place], [address], [place] tel:[phone] [facility] back pain (chief complaint) anxiety (chief complaint) Dietary surveillance and counselingLumbagoGe neralized anxiety disorder 3 Rayray Kennedy [address], [place], [place], [address] , [place]. tel:[phone] Referring Provider: Chan Henley [address], [place], [place], [address]. tel:[phone] OFFICE/OUTPA TIENT VISIT, EST [facility], [address], [place], [place], [address], [place] tel:[phone] [facility] back pain (chief complaint) anxiety (chief complaint) Headache (chief complaint) cough (chief complaint) Dietary surveillance and counselingLumbagoGe neralized anxiety disorderHeadacheAcu te upper respiratory infections of other multiple sites 3 Rayray Cates. [address], [place], [place], [address] , [place]. tel:[phone] Referring Provider: Darryn Seo, [address], [place], [place], [address]. tel:[phone] OFFICE/OUTPA TIENT VISIT, [facility], [address], [place], [place], [address], [place] tel:[phone] [facility] back pain (chief complaint) Headache (chief complaint) anxiety (chief complaint) Dietary surveillance and counselingLumbagoGe neralized anxiety disorderHeadache 3 Rayray Cates. [address], [place], [place], [address] , [place]. tel:[phone] Referring Provider: Darryn Seo, [address], [place], [place], [address]. tel:[phone] [facility], [address], [place], [place], [address], [place] tel:[phone] [facility] No Information 3 Rayray Cates. [address], [place], [address] , [place]. tel:[phone] OFFICE/OUTPA TIENT VISIT, [facility], [address], [place], [place], [address], [place] tel:[phone] [facility] back pain (chief complaint) anxiety (chief complaint) asthma (chief complaint) headache (chief complaint) Dietary surveillance and counselingLumbagoAS THMA, UNSPECIFIED TYPE, WITH (ACUTE) EXACERBATIONHeadach e 3 Rayray Cates. [address], [place], [place], [address] , [place]. tel:[phone] Referring Provider: Chan Henley [address], [place], [place], [address]. tel:[phone] OFFICE/OUTPA TIENT VISIT, [facility], [address], [place], [address], [place] tel:[phone] [facility] back pain (chief complaint) sinusisits (chief complaint) anxiety (chief complaint) Dietary surveillance and counselingGeneraliz ed anxiety disorderChronic ethmoidal sinusitisLumbago 3 Rayray Cates. [address], [place], [address] , [place]. tel:[phone] Referring Provider: Chan Henley [address], [place], [place], [address]. tel:[phone] OFFICE/OUTPA TIENT VISIT, [facility], [address], [place], [place], [address], [place] tel:[phone] [facility] back pain (chief complaint) anxiety (chief complaint) headache (chief complaint) Dietary surveillance and counselingHeadache hronic ethmoidal sinusitisLumbago 0 3 Rayray Kennedy [address], [place], [place], [address] , [place]. tel:[phone] Referring Provider: Chan Henley [address], [place], [place], [address]. tel:[phone] OFFICE/OUTPA TIENT VISIT, [facility], [address], [place], [address], [place] tel:[phone] [facility] back pain (chief complaint) anxiety (chief complaint) headache (chief complaint) Dietary surveillance and counselingLumbagoGe neralized anxiety disorderHeadache 2 3 Rayray Cates. [address], [place], [place], [address] , [place]. tel:[phone] Referring Provider: Chan Henley [address], [place], [place], [address]. tel:[phone] OFFICE/OUTPA TIENT VISIT, [facility], [address], [place], [address], [place] tel:[phone] [facility] HLP (chief complaint) vitamin d (chief complaint) back pain (chief complaint) anxiety (chief complaint) Dietary surveillance and counselingOther and unspecified hyperlipidemiaUnspe cified vitamin d deficiencyLumbago 3 Rayray Cates. [address], [place], [address] , [place]. tel:[phone] Referring Provider: Darryn Seo, [address], [place], [place], [address]. tel:[phone] OFFICE/OUTPA TIENT VISIT, EST [facility], [address], [place], [address], [place] tel:[phone] [facility] back pain (chief complaint) anxiety (chief complaint) Headache (chief complaint) Dietary surveillance and counselingLumbagoGe neralized anxiety disorderHeadache Fe 3 Rayray Cates. [address], [place], [address] , [place]. tel:[phone] Referring Provider: Chan Henley [address], [place], [place], [address]. tel:[phone] PREV VISIT, EST, AGE 18-39 [facility], [address], [place], [address], [place] tel:[phone] [facility] Physical (chief complaint) Dietary surveillance and counselingRoutine Medical ExamRoutine Medical Exam 3 Rayray Cates. [address], [place], [place], [address] , [place]. tel:[phone] Referring Provider: Chan Henley [address], [place], [place], [address]. tel:[phone] OFFICE/OUTPA TIENT VISIT, EST [facility], [address], [place], [place], [address], [place] tel:[phone] [facility] Headache (chief complaint) anxiety (chief complaint) back pain (chief complaint) Dietary surveillance and counselingLumbagoAs thmaHeadache 2 Rayray Cates. [address], [place], [place], [address] , [place]. tel:[phone] Referring Provider: Chan Henley [address], [place], [place], [address]. tel:[phone] [facility], [address], [place], [place], [address], [place] tel:[phone] [facility] No Information 2 Rayray Cates. [address], [place], [address] , [place]. tel:[phone] OFFICE/OUTPA TIENT VISIT, [facility], [address], [place], [place], [address], [place] tel:[phone] [facility] anxiety (chief complaint) back pain (chief complaint) headache (chief complaint) Dietary surveillance and counselingHeadacheL umbagoGeneralized anxiety disorder 2 Rayray Cates. [address], [place], [place], [address] , [place]. tel:[phone] Referring Provider: Darryn Seo [address], [place], [place], [address]. tel:[phone] OFFICE/OUTPA TIENT VISIT, [facility], [address], [place], [address], [place] tel:[phone] [facility] anxiety (chief complaint) back pain (chief complaint) Dietary surveillance and counselingLumbagoGe neralized anxiety disorder 2 Rayray Cates. [address], [place], [address] , [place]. tel:[phone] Referring Provider: Chan Henley [address], [place], [address]. tel:[phone] OFFICE/OUTPA TIENT VISIT, [facility], [address], [place], [place], [address], [place] tel:[phone] [facility] back pain (chief complaint) anxiety (chief complaint) asthma (chief complaint) Dietary surveillance and counselingLumbagoAS THMA, UNSPECIFIED TYPE, WITH (ACUTE) EXACERBATIONMajor depressive affective disorder, single episode, mild degree Sep-2 2 Rayray Cates. [address], [place], [place], [address] , . tel:[phone] Family History Family Member Type Diagnosis Age At Onset Father Problem (finding) Asthma Mother Problem (finding) Cancer, unknown Payers Payer name Insurance type Covered libertarian ID Authoriza tievelin(s) No Information Social History Type Description Quantity Date Captured Comments Sex Female Smoking Status No Information Chief Complaint And Reason For Visit No Information Plan Of Treatment Date Type Action Status Goal Tobacco cessation counseling completed Goal Tobacco cessation counseling completed Goal Tobacco cessation counseling completed Goal Tobacco cessation counseling completed Goal Tobacco cessation counseling completed Goal Tobacco cessation counseling completed Goal Tobacco cessation counseling completed Goal Tobacco cessation counseling completed Goal Tobacco cessation counseling completed Goal Tobacco cessation counseling completed Goal Tobacco cessation counseling completed Goal Tobacco cessation counseling completed Goal Tobacco cessation counseling completed Goal Tobacco cessation counseling completed Referral Ordered: MRI BRAIN W/O & W/DYE ordered Referral Ordered: Referral: Otolaryngology. ordered Referral Ordered: CT MAXILLOFACIAL W/O DYE (SINUSES) SF ordered History Of Present Illness Encounter Date Complaint History Of Prese nt Illness No Information Instructions Date Instruction Additional Infor mation Decrease caloric intake Related to Dietary surveillance counseling Dietary counseling Related to Di etary surveillance counseling Decrease caloric intake Related to Dietary surveillance counseling Dietary counseling Related to Di etary surveillance counseling Dietary counseling Related to Di etary surveillance counseling Decrease caloric intake Related to Dietary surveillance counseling Dietary counseling Related to Di etary surveillance counseling Decrease caloric intake Related to Dietary surveillance counseling Decrease caloric intake Related to Dietary surveillance counseling Dietary counseling Related to Di etary surveillance counseling Dietary counseling Related to Di etary surveillance counseling Decrease caloric intake Related to Dietary surveillance counseling Dietary counseling Related to Di etary surveillance counseling Decrease caloric intake Related to Dietary surveillance counseling Dietary counseling Related to Di etary surveillance counseling Decrease caloric intake Related to Dietary surveillance counseling Decrease caloric intake Related to Dietary surveillance counseling Dietary counseling Related to Di etary surveillance counseling Dietary counseling Related to Di etary surveillance counseling Decrease caloric intake Related to Dietary surveillance counseling Dietary counseling Related to Di etary surveillance counseling Decrease caloric intake Related to Dietary surveillance counseling Dietary counseling Related to Di etary surveillance counseling Decrease caloric intake Related to Dietary surveillance counseling Decrease caloric intake Related to Dietary surveillance counseling Dietary counseling Related to Di etary surveillance counseling Decrease caloric intake Related to Dietary surveillance counseling Dietary counseling Related to Di etary surveillance counseling Assessments Type Assessment Date No Information
== END 2024-03-18 08:47 ==
LOC: ASC 07:08
PROVIDERS: PCP Family Medicine; Visit Provider Anesthesiology Pain Medicine
PROC: (CPT 64483; principal; 2024-03-18 08:00)
DX: M54.17 Radiculopathy, lumbosacral region (principal); G89.29 Other chronic pain
CPT/HCPCS: 64483; 64484; 99199

== ENCOUNTER 2024-05-07 14:27 | Outpatient (CLI) | payer OTHER, SELFPAY ==
--- NOTE | ~2024-05-07 | XR_ITS ---
3 VIEWS LUMBAR SPINE Ordering provider: Anjelica Marsh MD History: . M47.816 - Spondylosis without myelopathy or radiculopathy... . Comparison: None. FINDINGS: VERTEBRAL BODIES: No visible fracture or subluxation. Degenerative changes of the spine. DISK SPACES: Narrowing of the disc L5-S1. SOFT TISSUES: Aortic calcification. IMPRESSION: No acute osseous abnormality lumbar spine. Degenerative disc disease at the level of L5-S1. Reviewed, dictated and finalized at location A.
--- NOTE | ~2024-05-07 | CT_ITS ---
CT lumbar spine wo con Ordering provider: Anjelica Marsh MD History: 48 years Female with . M47.816 - Spondylosis without myelopathy or radiculopathy... . Comparison: None. Technique: CT lumbar spine without contrast. Automated exposure control and iterative reconstruction technique were employed. The dose-length product was 432.19 mGy-cm. FINDINGS: VERTEBRAE: Normal height and alignment. No subluxation or visible acute fracture. DISC SPACES: Narrowing of the disc L5-S1. Facet joint disease at the same level and at the level of L 4-L5. Bilateral sacroiliacs.. T12-L1: No stenosis. L1-L2: No stenosis. L2-L3: No stenosis. Mild diffuse disc bulge. L3-L4: No stenosis. Mild diffuse disc bulge. L4-L5: No stenosis. Mild diffuse disc bulge. L5-S1: No stenosis. Diffuse disc bulge with posterior osteophytes narrowing of the foramina is seen with nerve root compression the right side PARASPINOUS SOFT TISSUES: Mild atheromatous disease of the abdominal aorta. IMPRESSION: No acute osseous abnormality. Degenerative disc disease at the level of L5-S1. Multilevel diffuse disc bulge. Reviewed, dictated and finalized at location A.
--- OUTSIDE RECORDS SUMMARY | 2024-05-07 16:23 | XMS_ITS | Encounter Summary ---
Author Organization [facility] Address [address] [address] Care Team Providers Care Fund Director Name Role Phone Ciera Sosa MD Primary Care Provider Reason for Visit * Reason Onset Date Comments Surgical Follow-up 11/01/2022 Encounter Details Date Type Department Care Team (Late st Contact Info) Description 11/01/2022 Telephone [facility] [address] [place] [address] Nathalia Ocampo MD [address] [place] [address] Surgical Follow-up Social History Tobacco Use Types Packs/Day Years Used Date Smoking Tobacco: Every Day Cigarettes Smokeless Tobacco: Never Alcohol Use Standard Drinks/Week Comments No 0 (1 standard drink = 0.6 oz pur e alcohol) PHQ-2 Answer Date Recorded PHQ2 TOTAL SCORE 2 09/01/2022 Sex and Gender Information Value Date Recorded Sex Assigned at Female 02/13/2022 12:43 PM MAILING 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 * Telephone Encounter - Petra Caro RN - 11/01/2022 10:46 AM CDT RN called pt. Pt needing post op appt from [facility]. Pt scheduled for 11/27/2022 3:00 PM Nathalia Ocampo MD Pt accepts appt * Telephone Encounter - [place] Self - 11/01/2022 8:45 AM CDT Pt is calling office to schedule a 8 week post op appt the next available is too late for her Pt CB# [phone] Alt CB# [phone] documented in this encounter Plan of Treatment Not on file documented as of this encounter Visit Diagnoses Not on filedocumented in this encounter Care Teams Fund Director Relationship Specialty Start Date End Date Ciera Sosa MD PCP - General 03/16/17 documented as of this encounter
--- OUTSIDE RECORDS SUMMARY | 2024-05-07 16:23 | XMS_ITS | Patient Health Summary ---
Author Organization [facility] [employer] Address [address] [place] [address] Care Team Providers Care Purification Director Name Role Phone Ciera Sosa MD Primary Care Provider Note from [facility],non-owned Affiliates and Associated Physician Practices is amultiple site organization consisting of ambulatory clinics and hospital sitesin [place], [place], [place] and [place]. This disclosure is being madepursuant to the Care Everywhere program and may not contain all information available regarding this patient. Last updated 17.[facility] Allergies No known active allergies Medications * [...] (Flonase) 50 MCG/ACT nasal spray(Started 08/04/2021) * xeosvswrwt-euvehsvyvdwkm-[id number] (Fioricet) 50-300-40 MG capsule(Started 12/22/2020) TAKE 1 [...] Sex Assigned at Female 02/13/2022 12:43 PM LOBSTER MAN Gender Identity Female 02/13/2022 12:43 PM [employer] MAN Sexual Orientation Straight 02/13/2022 12 :43 PM LOBSTER MAN Last Filed Vital Signs Vital Sign Reading Time Taken Comments Blood Pressure 112/80 11/27/2022 2:51 PM CDT Pulse 63 10/04/2022 12:05 PM CDT Temperature 36.3 C (97.4 F) 10/04/2022 11:34 AM CDT Respiratory Rate 18 10/04/2022 12:05 PM CDT [...] DIFFERENTIAL(Performed 09/21/2022) Performed for Preoperative examination * [place] BIOPSY OF UTERUS LINING(Performed 09/01/2022) Performed for [...] AM CDT) Case Report Surgical Pathology Report Case: [id number] Authorizing Provider: Nathalia Ocampo, Collected: 10/04/2022 09:14 AM Ordering Location: [facility] Received: 10/04/2022 10:53 AM Pathologist: Ciera Mcgowan MD Specimen: Uterus w Cervix, Uterus, Cervix 10/05/2022 9:49 AM CDT [facility] Final Diagnosis Uterus, hysterectomy - Secretory endometrium - Adenomyosis - Cervix with no histopathologic abnormality - Serosal adhesions 10/05/2022 9:49 AM CDT [facility] Clinical History The patient is a 47-year-old woman with abnormal uterine bleeding. Operative procedure: hysterectomy. 10/05/2022 9:49 AM [facility] Gross Description The requisition and specimen [...] is sectioned to show no focal lesions. Interactive Digital [employer] Specialist sections are submitted as follows: A1-A2: Anterior cervix and lower uterine segment A3-A4: Posterior cervix and lower uterine segment A 5-A6: Anterior endomyometrium A 7-A8: Posterior endomyometrium AR 10/05/2022 9:49 AM [facility] Microscopic Description Microscopic examination substantiates the above diagnosis. 10/05/2022 9:49 AM [facility] Pathologist Location at [facility] 10/05/2022 9:49 AM [facility] Disclaimer All histochemical and/or immunohistochemical results are interpreted with controls that demonstrate appropriate staining reactions before reporting results. Note on use of immunocytochemistry reagents: This test was developed and its performance characteristic determined by [facility], Department of Laboratory Medicine. It has not [...] interpreted with caution. 10/05/2022 9:49 AM CDT [facility] Embedded Images 10/05/2022 9:49 AM CDT [facility] Pathology/Cytolo gy SPECIMEN FROM UTERINE CERVIX OBTAINED BY HYSTERECTOMY / Unknown 10/04/2022 9:14 AM CDT 10/04/2022 10:53 AM CDT Comment:Pre-op diagnosis: Diagnosis unknown [R69] Nathalia Ocampo MD LAB - PATHOL OGY/CYTOLOGY ORDERABLES [facility] [address] [place] [address] * ETT LINE PERFORMABLE (10/04/2022 7:45 AM CDT) Narrative Taj Cline APRN-CRNA - 10/04/2022 7:45 AM CDT Taj Cline APRN-CRNA 10/04/2022 7:46 AM Endotracheal Tube Placement: Patient Location: OR. Intubation Event Date/Time: 10/04/2022 7:34 AM Procedure: intubation (33055). Procedure Section: Sedation: under general anesthesia. Indications for Airway Management: anesthesia Induction: standard IV Patient Position: supine Mask Ventilation: easy. Blade Type: Jarett Blade Size: 4 Laryngoscopy View: grade 1 (full cords) Intubation Adjuncts: stylet Tube: endotracheal tube Placement: oral Tube type: cuff - inflated Tube Size (MM): 7 Depth of Insertion (CM): 20 Measured From: teeth Cuff volume (mL): 4 Cuff Inflated With: air Number of Attempts: 1. Placement Verified By: direct visualization, bilateral breath sounds, chest auscultation and CO2 monitor Tube secured with: adhesive tape. Dentition unchanged? Yes Difficult Airway? No. Procedure Start Time: 10/04/2022 7:34 AM. Procedure End Time: 10/04/2022 7:35 AM. Procedure Total Time: 1 minutes. Staff Section Anesthesia Provider: Taj Cline APRN-CRNA, Performed the procedure Donell Alfred MD GENERAL ANESTHESIA ORDERABLES * TYPE + SCREEN PANEL (10/04/2022 6:25 AM CDT) Only the most recent of3 resultswithin the time period is included. ABO Rh A POS 10/04/2022 7:06 AM CDT [facility] Comment:History checked. Antibody Screen NEG 7:06 AM CDT [facility] Comment:History of an antibo dy of undetermined specificity. Blood Bank BLOOD SPECIMEN / Unknown Venipuncture / Unknown 10/04/2022 6:25 AM CDT 10/04/2022 6:36 AM CDT Donell Alfred MD LAB - BLOOD BANK O RDERABLES [facility] [address] [id number] [phone] * (ABNORMAL) BASIC METABOLIC PANEL (CALCIUM TOTAL) (10/04/2022 6:25 AM CDT) Glucose 78 70 - 105 mg/dL 10/04/2022 6:54 AM [facility] Sodium 142 136 - 145 mmol/L 10/04/2022 6:54 AM [facility] Potassium 3.7 3.5 - 5.1 mmol/L 10/04/2022 6:54 AM [facility] Chloride 109(H) 98 - 107 mmol/L 10/04/2022 6:54 AM [facility] CO2 25 22 - 29 mmol/L 10/04/2022 6:54 AM [facility] Calcium 8.9 8.4 - 10.4 mg/dL 10/04/2022 6:54 AM [facility] Anion Gap 8 6 - 16 mmol/L 10/04/2022 6:54 AM [facility] BUN 7 5.3 - 18.7 mg/dL 10/04/2022 6:54 AM T [facility] Creatinine 0.68 0.57 - 1.11 mg/dL 10/04/2022 6:54 AM [facility] eGFR by CKD-EPI >90 >=90 mL/min/1.7 3 m2 10/04/2022 6:54 AM [facility] Blood BLOOD SPECIMEN / Unknown Venipuncture / Unknown 10/04/2022 6:25 AM CDT 10/04/2022 6:34 AM CDT Nathalia Ocampo MD LAB - CHEMIS TRY ORDERABLES [facility] [address] [place] [address] * CBC W AUTO DIFFERENTIAL (09/21/2022 9:13 AM CDT) Only the most recent of3 resultswithin the time period is included. WBC 7.7 4.4 - 10.7 x10E9/L 09/21/2022 9:32 AM CDT [facility] WBC Corrected 09/21/2022 9:32 AM CDT [facility] RBC 4.50 3.80 - 5.20 x10E12/L 09/21/2022 9:32 AM CDT [facility] Hemoglobin 13.1 12.0 - 15.6 gm/dL 09/21/2022 9:32 AM CDT [facility] Hematocrit 39.9 35.9 - 45.5 % 09/21/2022 9:32 AM CDT [facility] MCV 88.7 80.7 - 98.3 fl 09/21/2022 9:32 AM CDT [facility] MCH 29.1 26.7 - 34.0 pg 09/21/2022 9:32 AM CDT [facility] MCHC 32.8 30.8 - 35.9 gm/dL 09/21/2022 9:32 AM CDT [facility] Platelet Count 206 153 - 416 x10E9/L 09/21/2022 9:32 AM CDT [facility] RDW-CV 13.3 12.1 - 14.9 % 09/21/2022 9:32 AM CDT [facility] MPV 11.0 9.4 - 12.9 fl 09/21/2022 9:32 AM CDT [facility] Neutrophils % 57.7 44.0 - 73.0 % 09/21/2022 9:32 AM CDT [facility] Lymphocytes % 28.5 20.0 - 43.0 % 09/21/2022 9:32 AM CDT [facility] Monocytes % 7.3 5.0 - 13.0 % 09/21/2022 9:32 AM CDT [facility] Eosinophils % 5.7 0.0 - 6.0 % 09/21/2022 9:32 AM CDT [facility] Basophils % 0.5 0.0 - 2.0 % 09/21/2022 9:32 AM CDT [facility] Immature Granulocytes 0.3 0 - 1 % 09/21/2022 9:32 AM CDT [facility] Neutrophil Absolute 4.45 2.01 - 7.14 x10E9/L 09/21/2022 9:32 AM CDT [facility] Lymphocytes Absolute 2.20 1.07 - 3.94 x10E9/L 09/21/2022 9:32 AM CDT [facility] Monocytes Absolute 0.56 0.26 - 1.07 x10E9/L 09/21/2022 9:32 AM CDT [facility] Eosinophils Absolute 0.44 0 - 0.47 x10E9/L 09/21/2022 9:32 AM CDT [facility] Basophils Absolute 0.04 0 - 0.08 x10E9/L 09/21/2022 9:32 AM CDT [facility] Immature Granulocytes Absolute 0.02 0.00 - 0.06 x10E9/L 09/21/2022 9:32 AM CDT [facility] nRBC Auto 0 /100 WBC 09/21/2022 9:32 AM CDT [facility] Blood BLOOD SPECIMEN / Unknown Venipuncture / Unknown 09/21/2022 9:13 AM CDT 09/21/2022 9:25 AM CDT Nathalia Ocampo MD LAB - HEMATO LOGY ORDERABLES [facility] [address] [place] [address] * [place] BIOPSY OF UTERUS LINING (09/01/2022 12:27 PM CDT) Narrative Nathalia Ocampo MD - 09/01/2022 12:27 PM CDT Nathalia Ocampo MD 09/01/2022 12:33 PM Consent obtained EMB performed Patient roger well. Nathalia Ocampo MD PROCEDURE/NC NOR SURGICAL ORDERABLES * PATHOLOGY TISSUE (09/01/2022 12:27 PM CDT) Case Report Surgical Pathology Report Case: [id number] Authorizing Provider: Nathalia Ocampo, Collected: 09/01/2022 12:27 PM Ordering Location: [facility] - Received: 09/04/2022 02:45 PM [facility] Pathologist: Shaquille Crawford MD Specimen: Endometrium Biopsy, EMB 09/05/2022 9:49 AM CDT [facility] Final Diagnosis Endometrium, biopsy (A): - Proliferative endometrium with stromal breakdown - Negative for hyperplasia or malignancy 09/05/2022 9:49 AM CDT [facility] Microscopic Description and Comment Microscopic examination substantiates the final diagnosis. 09/05/2022 9:49 AM CDT [facility] Clinical History The patient is [...] CDT [facility] Pathologist Location at [facility] 09/05/2022 9:49 AM CDT [facility] Disclaimer The performance characteristics of all immunohistochemical and indirect immunofluorescence stains (if any) cited in this report were determined by the Histopathology Laboratory of [facility]. Some of these tests were developed by [...] attending (teaching) pathologist. 09/05/2022 9:49 AM CDT [facility] Embedded Images 09/05/2022 9:49 AM CDT [facility] Pathology/Cytolo gy OPEN BIOPSY OF ENDOMETRIUM / Unknown 09/01/2022 12:27 PM CDT 09/04/2022 2:45 PM CDT Nathalia Ocampo MD LAB - PATHOL OGY/CYTOLOGY ORDERABLES [facility] [address] [phone] * US PELVIS COMPLETE (12/29/2021) Anatomical Region Laterality Modality Pelvis Ultrasound Narrative 12/29/2021 Yamel Clemons 12/29/2021 3:26 PM Documentation in digisonics Procedure Note Yamel Clemons - 12/29/2021 3:25 PM CDT Documentation in digisonics Nathalia Ocampo MD US ORDERABLE S * (ABNORMAL) HPV DETECTION HIGH RISK TAMMI (12/22/2021 4:32 PM CDT) High Risk Human Papilloma Result Detected( A) Not detected 12/28/2021 10:53 AM CDT [facility] High Risk Human Papilloma Interp 12/28/2021 10:53 AM CDT [facility] Comment:High Risk Human Bienvenido lloma Virus - Detected Pathology/Cytolo gy MISCELLANEOUS SAMPLES / Unknown 12/22/2021 4:32 PM CDT 12/23/2021 2:12 PM CDT Narrative [facility] - 12/28/2021 10:53 AM CDT Nucleic acid isolated from the specimen was analyzed with a nucleic acid amplification test (FDA approved Gen-Probe HPV Assay) to detect high risk human papilloma virus (Types: 16, 18, 31, 33, 35, 39, 45, 51, 52, 56, 58, 59, 66, and 68). The reference range is Not Detected . Comment: These test results should not be used as the sole basis for clinical assessment and treatment of patients. These results should always be correlated with other available data (cytology, histology, and clinical information). Nathalia Ocampo MD LAB - MICROB IOLOGY ORDERABLES Performing Organization Address City/State/[facility] Co de Phone Number [facility] [address] [phone] * PAP IMAGE-GUIDED W HPV (12/22/2021 4:32 PM CDT) Case Report Gynecologic Cytology Report Case: [id number] Authorizing Provider: Nathalia Ocampo, Collected: 12/22/2021 04:32 PM Ordering Location: [facility] Obstetrics Received: 12/23/2021 02:12 PM [facility] First Screen: Carlos Eduardo Limon Specimen: THINPREP - IMAGE GUIDED, Cervix/Endocervix 12/27/2021 3:23 PM CDT [facility] LMP 12/21/2021 12/27/2021 3:23 PM CDT [facility] Menstrual Status None Applicable 02/2021 3:23 PM CDT [facility] Specimen Adequacy Satisfactory for evaluation, endocervical/trans formation zone component absent. 12/27/2021 3:23 PM CDT [facility] Categorization Negative for intraepithelial lesion or malignancy. 12/27/2021 3:23 PM CDT [facility] Interpretation COMB FIXER Negative for intraepithelial lesion or malignancy. 12/27/2021 3:23 PM CDT [facility] Pap Footnote The Pap Smear is a screening test. False positive and false negative results occur. Negative results do not preclude abnormalities, thus clinical correlation is required. This specimen was evaluated by the ThinPrep Imaging System along with an additional manual rescreening by a engineering production liaison and/or pathologist. 12/27/2021 3:23 PM CDT [facility] Embedded Images 3:23 PM CDT [facility] Pathology/Cytolo gy MISCELLANEOUS SAMPLES / Unknown 12/22/2021 4:32 PM CDT 12/23/2021 2:12 PM CDT Nathalia Ocampo MD LAB - PATHOL OGY/CYTOLOGY ORDERABLES Performing Organization Address [facility] Co de Phone Number [facility] [address] [phone] * HPV GENOTYPES 16,18/45 (12/22/2021 4:32 PM CDT) Human papillomavirus Genotype 16 by TMA Not detected Not detected 12/28/2021 4:18 PM CDT [facility] Human papillomavirus Genotype 18/45 by TMA Not detected Not detected 12/28/2021 4:18 PM CDT [facility] Pathology/Cytolo gy MISCELLANEOUS SAMPLES / Unknown 12/22/2021 4:32 PM CDT 12/23/2021 2:12 PM CDT Narrative [facility] - 12/28/2021 4:18 PM CDT [...] Ocampo MD LAB - MICROB IOLOGY ORDERABLES Performing Organization Address [facility] Co de Phone Number [facility] [address] [phone] * XR HAND LEFT 3VW OR MORE (01/29/2017 5:51 PM LOBSTER MAN) Anatomical Region Laterality Modality Wrist / Hand Other Impressions 01/30/2017 9:47 AM [employer]OBSTER MAN IMPRESSION: No acute fracture or dislocation identified. This report was dictated by Qasim Mast M.D. (resident). Dr. CYNTHIA Martines M.D. have personally reviewed and interpreted this examination/study. This report was electronically signed by CYNTHIA BOLTON M.D. on 01/30/2017 9:47 AM . Narrative 01/30/2017 9:47 AM [employer]OBSTER MAN EXAMINATION: PX HAND LEFT 3+ VW HISTORY: [...] LEFT 3VW OR MORE (01/29/2017 5:50 PM LOBSTER MAN) Anatomical Region Laterality Modality Upper Extremity Other Impressions 01/30/2017 9:33 AM [employer]STER MAN IMPRESSION: No acute fracture or dislocation identified. This report was dictated by Qasim Mast M.D. (resident). Dr. CYNTHIA Martines M.D. have personally reviewed and interpreted this examination/study. This report was electronically signed by CYNTHIA BOLTON M.D. on 01/30/2017 9:33 AM . Narrative 01/30/2017 9:33 AM [employer]STER MAN EXAMINATION: PX ELBOW LEFT 3+ VW HISTORY: [...] ABDOMEN PELVIS W CONT (01/29/2017 5:00 PM LOBSTER MAN) Anatomical Region Laterality Modality Chest, Abdomen, Pelvis Other Impressions 01/30/2017 8:34 AM [employer]OBSTER MAN IMPRESSION: 1. No acute visceral, vascular, or osseous injury identified in the chest, abdomen, or pelvis. Dictated by Terry Kaplan MD (interventional radiology technologist). Dr. TYREL Martines M.D. have personally reviewed and interpreted this examination/study. This report was electronically signed by TYREL JURADO M.D. on 01/30/2017 8:34 AM . Narrative 01/30/2017 8:34 AM [employer]OBSTER MAN EXAMINATION: Computed tomography (CT) of the chest, [...] or pelvis. Dictated by Terry Kaplan MD (interventional radiology technologist). I, Dr. TYREL JURADO M.D. have personally reviewed and interpreted thisexamination/study. This report was electronically signed by TYREL JURADO M.D. on01/30/2017 8:34 AM . Yrn Blunt DO CT ORDERABLES * CT LUMBAR SPINE WO CONTRAST (01/29/2017 5:00 PM LOBSTER MAN) Anatomical Region Laterality Modality Spine Other Impressions 01/30/2017 5:39 AM LOBSTER MAN IMPRESSION: 1. No acute intracranial process. 2. No evidence of acute fracture in the cervical, thoracic, or lumbar spine. This report was electronically signed by YANIV CEDEÑO M.D. on 01/30/2017 5:39 AM . Narrative 01/30/2017 5:39 AM LOBSTER MAN EXAMINATION: 1. Computed tomography (CT) of the [...] THORACIC SPINE WO CONTRAST (01/29/2017 5:00 PM LOBSTER MAN) Anatomical Region Laterality Modality Spine Other Impressions 01/30/2017 5:39 AM LOBSTER MAN IMPRESSION: 1. No acute intracranial process. 2. No evidence of acute fracture in the cervical, thoracic, or lumbar spine. This report was electronically signed by YANIV CEDEÑO M.D. on 01/30/2017 5:39 AM . Narrative 01/30/2017 5:39 AM LOBSTER MAN EXAMINATION: 1. Computed tomography (CT) of the [...] CERVICAL SPINE WO CONTRAST (01/29/2017 5:00 PM LOBSTER MAN) Anatomical Region Laterality Modality Spine Other Impressions 01/30/2017 5:39 AM LOBSTER MAN IMPRESSION: 1. No acute intracranial process. 2. No evidence of acute fracture in the cervical, thoracic, or lumbar spine. This report was electronically signed by YANIV CEDEÑO M.D. on 01/30/2017 5:39 AM . Narrative 01/30/2017 5:39 AM LOBSTER MAN EXAMINATION: 1. Computed tomography (CT) of the [...] CT HEAD WO CONTRAST (01/29/2017 5:00 PM LOBSTER MAN) Anatomical Region Laterality Modality Head Other Impressions 01/30/2017 5:39 AM LOBSTER MAN IMPRESSION: 1. No acute intracranial process. 2. No evidence of acute fracture in the cervical, thoracic, or lumbar spine. This report was electronically signed by YANIV CEDEÑO M.D. on 01/30/2017 5:39 AM . Narrative 01/30/2017 5:39 AM LOBSTER MAN EXAMINATION: 1. Computed tomography (CT) of the [...] CEDEÑO M.D. on 01/30/20175:39 AM . Yrn Celine Blunt DO CT ORDERABLES * DAIJA DIRECT (01/29/2017 4:38 PM LOBSTER MAN) Direct Daija (MARIBELL) NEG [facility] Blood specimen (specimen) 01/29/2017 4:38 PM LOBSTER MAN 01/29/2017 4:38 PM LOBSTER MAN Jaclyn Abraham MD LAB - BLOOD BANK ORD ERABLES Performing Organization Address City/[facility] Co de Phone Number [facility] [address] * ANTIBODY IDENTIFICATION (01/29/2017 4:38 PM LOBSTER MAN) Antibody 1 POS, Anti-NDS (No Disce [facility] Blood specimen (specimen) 01/29/2017 4:38 PM LOBSTER MAN 01/29/2017 4:38 PM LOBSTER MAN Jaclyn Abraham MD LAB - BLOOD BANK ORD ERABLES Performing Organization Address [facility] Co de Phone Number [facility] [address] * XR PELVIS 1 OR 2VW (01/29/2017 4:34 PM LOBSTER MAN) Anatomical Region Laterality Modality Pelvis Other Impressions 01/30/2017 9:33 AM LOBSTER MAN IMPRESSION: No acute fracture identified. This report was dictated by Qasim Mast M.D. (resident). Dr. CYNTHIA Martines M.D. have personally reviewed and interpreted this examination/study. This report was electronically signed by CYNTHIA BOLTON M.D. on 01/30/2017 9:33 AM . Narrative 01/30/2017 9:33 AM LOBSTER MAN EXAMINATION: PX PELVIS 1 OR 2 VW [...] CYNTHIA BOLTON M.D. on 01/30/20179:33 AM . Ynr Blunt DO DIAGNOSTIC IMAGING O RDERABLES * XR CHEST 1VW PORTABLE (01/29/2017 4:33 PM LOBSTER MAN) Anatomical Region Laterality Modality Chest Other Impressions 01/30/2017 9:31 AM LOBSTER MAN IMPRESSION: No prior study is available for comparison at the time of this dictation. There is no consolidation, pleural effusion, or pneumothorax. The cardiomediastinal silhouette is normal. The visible bony thorax is intact. This report was dictated by Qasim Mast M.D. (resident). Dr. CYNTHIA Martines M.D. have personally reviewed and interpreted this examination/study. This report was electronically signed by CYNTHIA BOLTON M.D. on 01/30/2017 9:31 AM . Narrative 01/30/2017 9:31 AM LOBSTER MAN CHEST EXAMINATION: PX CHEST 1 VW HISTORY: [...] BOLTON M.D. have personally reviewed and interpreted thisexamination/study. This report was electronically signed by CYNTHIA BOLTON M.D. on 01/30/20179:31 AM . Yrn Blunt DO DIAGNOSTIC IMAGING O RDERABLES * PTT [facility] (01/29/2017 4:24 PM LOBSTER MAN) APTT 27.3 23.0 - 38.4 Seconds [facility] Comment:Suggested therapeuti c range for full dose I.V. heparin therapy for venous thromboembolism is 66.0-91.0 seconds. Blood specimen (specimen) BLOOD SPECIMEN / Unknown 01/29/2017 4:24 PM LOBSTER MAN 01/29/2017 4:29 PM LOBSTER MAN Narrative [facility] - 01/29/2017 4:52 PM LOBSTER MAN Please ensure that the aPTT specimen is received in the clinical lab within 1 hour of collection if it is used for therapeutic heparin monitoring. Processing of heparinized specimens older than 1 hour may result in inaccurate test results. Is patient on Heparin, Argatroban or Dabigatran?->N Yrn Blunt DO LAB - COAGULATION OR DERABLES [address] [phone] * PT-INR U (01/29/2017 4:24 PM LOBSTER MAN) PT 13.6 12.1 - 14.8 Seconds [facility] INR 1.1 See Comment [facility] Comment: Suggested therapeutic range for low-intensity coumadin therapy for venous thromboembolism prophylaxis is an INR of 2.0-3.0. For high risk patients (Mitral Valve Prosthesis, Atrial Fibrillation, history of TIA/stroke), suggested prophylactic therapeutic range is an INR of 2.5-3.5. Blood specimen (specimen) BLOOD SPECIMEN / Unknown 01/29/2017 4:24 PM LOBSTER MAN 01/29/2017 4:29 PM LOBSTER MAN Narrative [facility] - 01/29/2017 4:51 PM LOBSTER MAN Is patient on Heparin, Argatroban or Dabigatran?->N Yrn Blunt DO LAB - COAGULATION OR DERABLES Performing Organization Address City/State/[facility] Co de Phone Number [facility] [address] [place] [address] * (ABNORMAL) COMPREHENSIVE METABOLIC PANEL (01/29/2017 4:24 PM LOBSTER MAN) BUN 11 7 - 26 mg/dL [facility] Creatinine 0.7 0.6 - 1.2 mg/dL [facility] Sodium 139 136 - 145 mmol/L [facility] Potassium 3.6 3.5 - 4.5 mmol/L [facility] Chloride 106 98 - 107 mmol/L [facility] CO2 23 22 - 29 mmol/L [facility] Glucose 93 70 - 115 mg/dL [facility] Calcium 9.6 8.4 - 10.2 mg/dL [facility] Protein Total 7.5 6.0 - 8.3 g/dL [facility] Albumin 3.8 3.4 - 5.0 g/dL [facility] Bilirubin Total 0.4 0.2 - 1.2 mg/dL [facility] Alkaline Phosphatase 69 40 - 150 Units/L [facility] ALT <5 0 - 55 Units/L [facility] AST 11 5 - 34 Units/L [facility] Anion Gap 14 8 - 18 [facility] BUN/Creatinine Ratio 16 7 - 23 [facility] Osmolality Calculated 287 270 - 300 mOsm/kg [facility] Albumin/Globulin Ratio 1.0(L) 1.1 - 2.3 [facility] eGFR >60 >60 mL/min/1.7 3 m2 [facility] Blood specimen (specimen) BLOOD SPECIMEN / Unknown 01/29/2017 4:24 PM LOBSTER MAN 01/29/2017 4:29 PM LOBSTER MAN Yrn Blunt DO LAB - CHEMISTRY [facility] Performing Organization Address [facility] Co de Phone Number [address] [phone] * ALCOHOL ETHYL BLOOD (01/29/2017 4:24 PM LOBSTER MAN) Interpretation Ethanol None Detected None Detected mg/dL [facility] Comment:Ethanol levels less than 10 mg/dL are resulted as None detected . Blood specimen (specimen) BLOOD SPECIMEN / Unknown 01/29/2017 4:24 PM LOBSTER MAN 01/29/2017 4:29 PM LOBSTER MAN Yrn Blunt DO LAB - CHEMISTRY [facility]KS Performing Organization Address [facility] de Phone Number [address] [phone] * XR LUMBAR SPINE 4VW OR MORE (01/01/2017 1:08 PM LOBSTER MAN) Anatomical Region Laterality Modality Spine Other Impressions 01/03/2017 2:31 PM LOBSTER MAN IMPRESSION: No acute fracture or subluxation identified. Dictated by Aditi Metz MD (interventional radiology technologist). I, Dr. TYREL JURADO M.D. have personally reviewed and interpreted this examination/study. This report was electronically signed by TYREL JURADO M.D. on 01/03/2017 2:31 PM . Narrative 01/03/2017 2:31 PM LOBSTER MAN EXAMINATION: XR SPINE LUMBAR 4 VW MIN [...] subluxation identified. Dictated by Aditi Metz MD (interventional radiology technologist). I, Dr. TYREL JURADO M.D. have personally reviewed and interpreted thisexamination/study. This report was electronically signed by TYREL JURADO M.D. on01/03/2017 2:31 PM . Yana Otero PA-C [facility] ORDERABLES Care Teams Purification Director Relationship Specialty Start Date End Date Ciera Sosa MD PCP - General 03/16/17
--- OUTSIDE RECORDS SUMMARY | 2024-05-07 16:23 | XMS_ITS | Encounter Summary ---
Author Organization [facility] Address [address] [place] [address] Care Team Providers Care Ssis Ssrs Developer Name Role Phone Unavailable Primary Care Provider Unavailabl e Encounter Details Date Type Department Care Team (Late st Contact Info) Description 05/06/2024 External Device Data [facility] ABSTRACTION Provider, Abstract NO ADDRESS ON FILE Social History Tobacco Use Types Packs/Day Years Used Date Smoking Tobacco: Never Assessed Comments Unknown Sex and Gender Information Value Date Recorded Sex Assigned at Not on file Legal Sex Female 3:45 PM CDT Gender Identity Not on file Sexual Orientation Not on file documented as of this encounter Plan of Treatment Not on file documented as of this encounter Visit Diagnoses Not on filedocumented in this encounter
--- OUTSIDE RECORDS SUMMARY | 2024-05-07 16:23 | XMS_ITS | Clinical Summary ---
Author Organization [facility] Address [address] [place] [address] Care Team Providers Care Officer Captain Name Role Phone Ciera Sosa MD Primary Care Provider Source Comments [facility],non-owned Affiliates and Associated Physician Practices is amultiple site organization consisting of ambulatory clinics and hospital sitesin [place], [place], [place] and [place]. This disclosure is being madepursuant to the Care Everywhere program and may not contain all information available regarding this patient. Last updated 17.[facility] Allergies No known active allergies Medications * [...] Sex Assigned at Female 02/13/2022 12:43 PM INFORMATION TECHNOLOGY DIRECTOR Gender Identity Female 02/13/2022 12:43 PM INFORMATION TECHNOLOGY DIRECTOR Sexual Orientation Straight 02/13/2022 12 :43 PM INFORMATION TECHNOLOGY DIRECTOR Last Filed Vital Signs Vital Sign Reading [...] 2 - PCV) 1996 COVID-19 VACCINE ( season) 2023 INFLUENZA VACCINE (#1) 2023 9, [...] complete this topic MENINGOCOCCAL (Group B) VACCINE SHARED DECISION-MAKING Aged Out No longer eligible based on patient's age to complete this topic MENINGOCOCCAL GROUPS A/C/Y/W VACCINE Aged Out No longer eligible based on patient's age to complete this topic Care Teams Officer Captain Relationship Specialty Start Date End Date Ciera Sosa MD PCP - General 03/16/17
--- OUTSIDE RECORDS SUMMARY | 2024-05-07 16:23 | XMS_ITS | Continuity of Care Document ---
Author Organization [facility] Address [address] [place] [address] [address] [place] [address] Phone Care Team Providers Care Director Of Community Services Name Role Phone Doisy, Edward Unavailable Unavailable Advance Directives Directive Yes / No Effective Date File Name No Information Encounters Encounter Description Practice Location Reason(s) For Visit Diagnoses Date Provider Providers Copied on Encounter [facility], [address], [place], [place], [address], [place] tel:[phone] [facility] No Information 1-200 0 Doisy Edward. [address] , [address], [place], [address], [place]. tel:[phone] Family History Family Member Type Diagnosis Age At Onset No Information Payers Payer name Insurance type Covered green party ID Authorsoniaa tievelin(s) Medicaid [facility] [id number] Social History Type Description Quantity Date Captured [...]
--- OUTSIDE RECORDS SUMMARY | 2024-05-07 16:23 | XMS_ITS | Continuity of Care Document ---
Author Organization [facility] Address [address] [place] [address] [place] [address] Phone Care Team Providers Care Banking Services Clerk Name Role Phone Darryn Seo MD Unavailable Unavailable Allergies, Adverse Reactions, Alerts Substance Reaction Status Criticality No Known Allergies Active No Inform ation Medications Medication Instructions Dosage Effective Dates (start - stop) Status Comments Xanax 0.5 mg tablet take 1 tablet (0.5MG) by oral route 3 times every day 0.5 MG - Active avoid driving or operate machines Lorcet 10/650 10-650 mg tablet take 1 [...] Diagnoses Date Provider Providers Copied on Encounter [facility], [address], [place], [place], [address], [place] tel:[phone] [facility] No Information 3 Rayray Cates. [address], [place], [place], [address] , [place]. tel:[phone] Referring Provider: Darryn Seo [address], [place], [place], [address]. tel:[phone] OFFICE/OUTPA TIENT VISIT, EST [facility], [address], [place], [place], [address], [place] tel:[phone] [facility] back pain (chief complaint) anxiety (chief complaint) Dietary surveillance and counselingLumbagoGe neralized anxiety disorder 3 Rayray Kennedy [address], [address], [place], [place], [address] , [place]. tel:[phone] Referring Provider: Chan [address], [place], [place], [address]. tel:[phone] OFFICE/OUTPA TIENT VISIT, EST [facility], [address], [place], [address], [place] tel:[phone] [facility] back pain (chief complaint) anxiety (chief complaint) Headache (chief complaint) cough (chief complaint) Dietary surveillance and counselingLumbagoGe neralized anxiety disorderHeadacheAcu te upper respiratory infections of other multiple sites 3 Rayray Cates. [address], [place], [place], [address] , [place]. tel:[phone] Referring Provider: Darryn Seo, [address], [place], [place], [address]. tel:[phone] OFFICE/OUTPA TIENT VISIT, [facility], [address], [place], [place], [address], [place] tel:[phone] [facility] back pain (chief complaint) Headache (chief complaint) anxiety (chief complaint) Dietary surveillance and counselingLumbagoGe neralized anxiety disorderHeadache 3 Rayray Cates. [address], [place], [place], [address] , [place]. tel:[phone] Referring Provider: Darryn Seo, [address], [place], [place], [address]. tel:[phone] [facility], [address], [place], [place], [address], [place] tel:[phone] [facility] No Information 3 Rayray Cates. [address], [place], [address] , [place]. tel:[phone] OFFICE/OUTPA TIENT VISIT, [facility], [address], [place], [place], [address], [place] tel:[phone] [facility] back pain (chief complaint) anxiety (chief complaint) asthma (chief complaint) headache (chief complaint) Dietary surveillance and counselingLumbagoAS THMA, UNSPECIFIED TYPE, WITH (ACUTE) EXACERBATIONHeadach e 3 Rayray Cates. [address], [address], [place], [place], [address] , [place]. tel:[phone] Referring Provider: [address], [place], [place], [address]. tel:[phone] OFFICE/OUTPA TIENT VISIT, [facility], [address], [place], [address], [place] tel:[phone] [facility] back pain (chief complaint) sinusisits (chief complaint) anxiety (chief complaint) Dietary surveillance and counselingGeneraliz ed anxiety disorderChronic ethmoidal sinusitisLumbago 3 Rayray Cates. [address], [place], [place], [address] , [place]. tel:[phone] Referring Provider: [address], [place], [address]. tel:[phone] OFFICE/OUTPA TIENT VISIT, [facility], [address], [place], [address], [place] tel:[phone] [facility] back pain (chief complaint) anxiety (chief complaint) headache (chief complaint) Dietary surveillance and counselingHeadache hronic ethmoidal sinusitisLumbago 0 3 Rayray Kennedy [address], [address], [place], [address] , [place]. tel:[phone] Referring Provider: [address], [place], [place], [address]. tel:[phone] OFFICE/OUTPA TIENT VISIT, [facility], [address], [place], [place], [address], [place] tel:[phone] [facility] back pain (chief complaint) anxiety (chief complaint) headache (chief complaint) Dietary surveillance and counselingLumbagoGe neralized anxiety disorderHeadache 2 3 Rayray Cates. [address], [place], [place], [address] , [place]. tel:[phone] Referring Provider: Chan [address], [place], [place], [address]. tel:[phone] OFFICE/OUTPA TIENT VISIT, [facility], [address], [place], [place], [address], [place] tel:[phone] [facility] HLP (chief complaint) vitamin d (chief complaint) back pain (chief complaint) anxiety (chief complaint) Dietary surveillance and counselingOther and unspecified hyperlipidemiaUnspe cified vitamin d deficiencyLumbago 3 Rayray Cates. [address], [place], [place], [address] , [place]. tel:[phone] Referring Provider: Darryn Seo, [address], [place], [place], [address]. tel:[phone] OFFICE/OUTPA TIENT VISIT, EST [facility], [address], [place], [place], [address], [place] tel:[phone] [facility] back pain (chief complaint) anxiety (chief complaint) Headache (chief complaint) Dietary surveillance and counselingLumbagoGe neralized anxiety disorderHeadache Fe 3 Rayray Cates. [address], [place], [place], [address] , [place]. tel:[phone] Referring Provider: [address], [place], [place], [address]. tel:[phone] PREV VISIT, EST, AGE 18-39 [facility], [address], [place], [address], [place] tel:[phone] [facility] Physical (chief complaint) Dietary surveillance and counselingRoutine Medical ExamRoutine Medical Exam 3 Rayray Cates. [address], [place], [place], [address] , [place]. tel:[phone] Referring Provider: Chan [address], [place], [place], [address]. tel:[phone] OFFICE/OUTPA TIENT VISIT, EST [facility], [address], [place], [address], [place] tel:[phone] [facility] Headache (chief complaint) anxiety (chief complaint) back pain (chief complaint) Dietary surveillance and counselingLumbagoAs thmaHeadache 2 Rayray Cates. [address], [place], [address] , [place]. tel:[phone] Referring Provider: Chan [address], [place], [place], [address]. tel:[phone] [facility], [address], [place], [address], [place] tel:[phone] [facility] No Information 2 Rayray Cates. [address], [place], [place], [address] , [place]. tel:[phone] OFFICE/OUTPA TIENT VISIT, [facility], [address], [place], [place], [address], [place] tel:[phone] [facility] anxiety (chief complaint) back pain (chief complaint) headache (chief complaint) Dietary surveillance and counselingHeadacheL umbagoGeneralized anxiety disorder 2 Rayray Cates. [address], [place], [place], [address] , [place]. tel:[phone] Referring Provider: Darryn Seo [address], [place], [place], [address]. tel:[phone] OFFICE/OUTPA TIENT VISIT, [facility], [address], [place], [address], [place] tel:[phone] [facility] anxiety (chief complaint) back pain (chief complaint) Dietary surveillance and counselingLumbagoGe neralized anxiety disorder 2 Rayray Cates. [address], [place], [place], [address] , [place]. tel:[phone] Referring Provider: [address], [place], [place], [address]. tel:[phone] OFFICE/OUTPA TIENT VISIT, [facility], [address], [place], [address], [place] tel:[phone] [facility] back pain (chief complaint) anxiety (chief complaint) asthma (chief complaint) Dietary surveillance and counselingLumbagoAS THMA, UNSPECIFIED TYPE, WITH (ACUTE) EXACERBATIONMajor depressive affective disorder, single episode, mild degree Sep-2 2 Rayray Cates. [address], [address], [place], [place], [address] , . tel:[phone] Family History Family Member Type Diagnosis Age At Onset Father Problem (finding) Asthma Mother Problem (finding) Cancer, unknown Payers Payer name Insurance type Covered republican ID Authoriza tievelin(s) No Information Social History [...]
--- OUTSIDE RECORDS SUMMARY | 2024-05-07 16:23 | XMS_ITS | Continuity of Care Document ---
Author Organization [facility] Address [address] [place] [address] Phone Care Team Providers Care Toll Ticket Clerk Name Role Phone Unavailable Unavailable Unavailable Advance Directives Directive Yes / No Effective Date File Name No Information Encounters Encounter Description Practice Location Reason(s) For Visit Diagnoses Date Provider Providers Copied on Encounter [facility], [address], [place], [place], [address], [place] tel:[phone] [facility] No Information No Information Referring Provider: IRON Cuevas, [address], [place], [address]. tel:[phone] Family History Family Member Type Diagnosis Age At Onset No Information Payers Payer name Insurance type Covered democrat ID Authoriza nereida(s) JOELLENNetli [facility] [employer] [place] [place] [id number] CI [id number] Social History Type Description Quantity Date Captured Comments Sex Female Smoking Status No Information Chief Complaint And Reason For Visit No Information History Of Present Illness Encounter Date Complaint History Of Prese nt Illness No Information Instructions Date Instruction Additional Infor mation No Information Assessments Type Assessment Date No Information
--- OUTSIDE RECORDS SUMMARY | 2024-05-07 16:23 | XMS_ITS | Encounter Summary ---
Author Organization [facility] Address [address] [place] [address] Care Team Providers Care Street And Building Decorator Name Role Phone Unavailable Primary Care Provider Unavailabl e Encounter Details Date Type Department Care Team (Late st Contact Info) Description 05/03/2024 External Device Data [facility] ABSTRACTION Provider, Abstract [...]
--- OUTSIDE RECORDS SUMMARY | 2024-05-07 16:23 | XMS_ITS | Referral Summary ---
Author Organization [facility] Address [address] [place] [address] Care Team Providers Care Beef Killer Name Role Phone Ciera Sosa MD Primary Care Provider Source Comments [facility]non-owned Affiliates and Associated Physician Practices is amultiple site organization consisting of ambulatory clinics and hospital sitesin [place], [place], [place] and [place]. This disclosure is being madepursuant to the Care Everywhere program and may not contain all information available regarding this patient. Last updated 17.[facility] Allergies No known active allergies Medications * [...] Sex Assigned at Female 02/13/2022 12:43 PM AUTOMOTIVE PARTS COUNTER PERSON Gender Identity Female 02/13/2022 12:43 PM AUTOMOTIVE PARTS COUNTER PERSON Sexual Orientation Straight 02/13/2022 12 :43 PM AUTOMOTIVE PARTS COUNTER PERSON Last Filed Vital Signs Vital Sign Reading [...] of Treatment Not on file Care Teams Beef Killer Relationship Specialty Start Date End Date Ciera Sosa MD PCP - General 03/16/17
--- OUTSIDE RECORDS SUMMARY | 2024-05-07 16:23 | XMS_ITS | Clinical Summary ---
Author Organization [facility] Address [address] [place] [address] Care Team Providers Care Clothing Trades Workers Name Role Phone Unavailable Primary Care Provider Unavailabl e Encounters Date Type Department Care Team Description 05/06/2024 External Device Data STL ABSTRACTION Provider, Abstract 05/03/2024 External Device Data [facility] ABSTRACTION Provider, Abstract 05/03/2024 External Device Data [facility] ABSTRACTION Provider, Abstract 04/30/2024 External Device Data ST[facility] ABSTRACTION Provider, Abstract 04/16/2024 External Device Data STL ABSTRACTION Provider, Abstract 03/20/2024 External Device Data STL ABSTRACTION Provider, Abstract from Last 3 Months Social History Tobacco Use Types Packs/Day Years Used Date Smoking Tobacco: Never Assessed Comments Unknown Sex and Gender Information Value Date Recorded Sex Assigned at Not on file Legal Sex Female 3:45 PM CDT Gender Identity Not on file Sexual Orientation Not on file Plan of Treatment Health Maintenance Due Date Last Done Comments DTAP/TDAP/TD VACCINES (1 - Tdap) 1996 HEPATITIS B VACCINES (1 of 3 - 19+ 3-dose series) 1996 CERVICAL CANCER SCREENING 05/18/2007 BREAST CANCER SCREENING 2017 COLORECTAL SCREENING 2022 Colorectal Cancer Screening 2022 FIT-DNA Q 3 years 2022 FIT/FOBT Q 1 year 2022 Flex Sig/CT Colonography Q 5 years 2022 INFLUENZA VACCINE (#1) 2023 HPV VACCINES Aged Out No longer eligi ble based on patient's age to complete this topic PNEUMOCOCCAL VACCINE 0-49 YEARS Aged Out No longer eligible based on patient's age to complete this topic Insurance [employer]
== END 2024-05-07 14:28 | disposition home or self-care (01) ==
LOC: ANHIMG 14:29
PROVIDERS: PCP Family Medicine; Visit Provider Neurological Surgery
DX: M51.379 Other intervertebral disc degeneration, lumbosacral region without mention of lumbar back pain or lower extremity pain (principal); M51.369 Other intervertebral disc degeneration, lumbar region without mention of lumbar back pain or lower extremity pain; M47.816 Spondylosis without myelopathy or radiculopathy, lumbar region
CPT/HCPCS: 72110; 72131

== ENCOUNTER 2024-07-08 10:01 | Day surgery (SDC) | payer OTHER, SELFPAY ==
--- NOTE | ~2024-07-08 | XR_ITS ---
EXAMINATION: XR fluoroscopy no charge DATE: 07/08/2024 11:00 CDT INDICATION: DIAG/PROG DUYEN L3,L4,L5 MEDIAL BRANCH/DORSAL RAMUS BLK #1 . TECHNIQUE: 9 fluoroscopic images of the lumbar spine were obtained during diagnostic/prognostic bilat eral L3, L4, and L5 medial branch/dorsal ramus blocks, performed by Pradeep Lopes MD. I was not pr esent during the procedure. Fluoroscopy exposure time was 63.9 seconds. Air Kerma 12.42 mGy. COMPARISON: None FINDINGS/IMPRESSION: Fluoroscopic documentation of diagnostic/prognostic bilateral L3, L4, and L5 medial branch/dorsal yazan us blocks. Please refer to the operative note for complete procedural details. Reviewed, dictated and finalized at location K.
--- OUTSIDE RECORDS SUMMARY | 2024-07-08 10:18 | XMS_ITS | Clinical Summary ---
Author Organization [facility] Address [address] [place] [address] Care Team Providers Care Frame And Scrap Crusher Name Role Phone Ciera Sosa MD Primary Care Provider Source Comments [facility]non-owned Affiliates and Associated Physician Practices is amultiple site organization consisting of ambulatory clinics and hospital sitesin [place], [place], [place] and [place]. This disclosure is being madepursuant to the Care Everywhere program and may not contain all information available regarding this patient. Last updated 17.[facility] Allergies No known active allergies Medications * Be aware that medications may not be up to date on this document. Alwaysverify current medications with the patient. cyclobenzaprine (FLEXERIL) 5 MG tablet Take 2 (two) tablets by mouth TID 7 Active Butalbital-Acet aminophen 50-300 MG Take by mouth. 7 Active montelukast (SINGULAIR) 10 MG tablet Take 1 (one) tablet by mouth DAILY 7 Active busPIRone (Buspar) 15 MG tablet 2 Active cetirizine (ZyrTEC) 10 MG tablet 2 Active ibuprofen (Motrin) 800 MG tablet 2 Active citalopram (CeleXA) 40 MG tablet 2 Active triamcinolone acetonide (Kenalog) 0.5 % cream APPLY TOPICALLY TWICE A DAY NEEDED FOR ITCHING DO NOT USE FOR MORE THAN 2 WEEKS AT A TIME 1 Active fluticasone propionate (Flonase) 50 MCG/ACT nasal spray 2 Active butalbital-acet aminophen-caffe ine (Fioricet) 50-300-40 MG capsule TAKE 1 CAPSULE BY MOUTH ONCE EVERY 8 HOURS NEEDED FOR HEADACHE 1 Active tiZANidine (Zanaflex) 4 MG tablet Take 1 (one) tablet by mouth 3 times daily as needed For muscle spasms. 3 Active oxyCODONE, immediate release, (Roxicodone) 5 MG tabletIndicatio ns:Preop testing Take 1 (one) tablet by mouth every 4 hours as needed for Pain 15 tablet 3 Active ibuprofen (Motrin) 600 MG tablet Take 1 (one) tablet by mouth every 6 hours as needed for Pain 30 tablet 3 Active senna-docusate (Senokot-S) 8.6-50 MG tablet Take 1 (one) tablet by mouth 2 times daily 30 tablet 3 Active cephalexin (Keflex) 500 MG capsule Take 1 (one) capsule by mouth 4 times daily 28 capsule 3 Active Active Problems Problem Noted Date Diagnosed Date Other intervertebral disc degeneration, lumbar r egion 01/09/2017 Postlaminectomy syndrome, not elsewhere classifi ed 01/09/2017 Immunizations Immunization Administration Dates Next Due TDAP (7yrs+) 01/29/2017 [...] Date Recorded PHQ2 TOTAL SCORE 2 09/01/2022 Comments No Sex and Gender Information Value Date Recorded Sex Assigned at Female 02/13/2022 12:43 PM STEWARD/STEWARDESS SECOND Legal Sex Female 5:17 PM STEWARD/STEWARDESS SECOND Gender Identity Female 02/13/2022 12:43 PM STEWARD/STEWARDESS SECOND Sexual Orientation Straight 02/13/2022 12 :43 PM STEWARD/STEWARDESS SECOND Last Filed Vital Signs Vital Sign Reading [...] of 2 - PCV) 1996 COVID-19 VACCINE (1 - season) 2023 DEPRESSION SCREENING 02/27/2024 09/01/2022 INFLUENZA VACCINE (Season Ended) 2024 12/31/2018, 11/08/2010, 01/31/2010, Additional history exists DTAP/TDAP/TD VACCINES (2 - Td or Tdap) [...] patient's age to complete this topic Insurance Care Teams Frame And Scrap Crusher Relationship Specialty Start Date End Date Ciera Sosa MD PCP - General 03/16/17
--- OUTSIDE RECORDS SUMMARY | 2024-07-08 10:18 | XMS_ITS | Clinical Summary ---
Author Organization [facility] Address [address] [place] [address] Care Team Providers Care Photogrammetrist Name Role Phone Unavailable Primary Care Provider Unavailabl e Encounters Date Type Department Care Team Description 06/10/2024 External Device Data STL ABSTRACTION Provider, Abstract 05/14/2024 External Device Data STL ABSTRACTION Provider, Abstract 05/07/2024 External Device Data STL ABSTRACTION Provider, Abstract 05/06/2024 External Device Data STL ABSTRACTION Provider, [...] (1 of 3 - 19+ 3-dose series) 04/27 HPV/Cotest (21-29) 1998 CERVICAL CANCER SCREENING 05/18/2007 HPV/Cotest (30-65) 05/18/2007 PAP SMEAR 05/18/2007 BREAST CANCER SCREENING 2017 COLORECTAL SCREENING 2022 Colorectal Cancer Screening 2022 FIT-DNA Q 3 years 2022 FIT/FOBT Q 1 year 2022 Flex Sig/CT Colonography Q 5 years 2022 INFLUENZA VACCINE (#1) 2023 Insurance [employer]
--- OUTSIDE RECORDS SUMMARY | 2024-07-08 10:18 | XMS_ITS | Encounter Summary ---
Author Organization [facility] Address [address] [place] [address] Care Team Providers Care Efficiency Clerk Name Role Phone Ciera Sosa MD Primary Care Provider Reason for Visit * Reason Onset Date Comments Surgical Follow-up 11/01/2022 Encounter Details Date Type Department Care Team (Late st Contact Info) Description 11/01/2022 Telephone [facility] WORKERS COMPENSATION ADMINISTRATOR [address] [place] [address] Nathalia Ocampo MD [address] [place] [id number] Surgical Follow-up Social History Tobacco Use Types Packs/Day Years Used Date Smoking Tobacco: Every Day Cigarettes Smokeless Tobacco: Never Alcohol Use Standard Drinks/Week Comments No 0 (1 standard drink = 0.6 oz pur e alcohol) PHQ-2 Answer Date Recorded PHQ2 TOTAL SCORE 2 09/01/2022 Comments No Sex and Gender Information Value Date Recorded Sex Assigned at Female 02/13/2022 12:43 PM PRODUCTION PATTERN MAKER Legal Sex Female 5:17 PM PRODUCTION PATTERN MAKER Gender Identity Female 02/13/2022 12:43 PM PRODUCTION PATTERN MAKER Sexual Orientation Straight 02/13/2022 12 :43 PM PRODUCTION PATTERN MAKER documented as of this encounter Miscellaneous Notes * Telephone Encounter - Nathalia Ocampo MD - 11/01/2022 12:23 PM CDT Agree, thanks. * Telephone Encounter - Petra Caro RN - 11/01/2022 10:46 AM CDT RN called pt. Pt needing post op appt from [facility]. Pt scheduled for 11/27/2022 3:00 PM Nathalia Ocampo MD Pt accepts appt * Telephone Encounter - [place] Self - 11/01/2022 8:45 AM CDT Pt is calling office to schedule a 8 week post op appt the next available is too late for her Pt CB# [phone] Alt CB# [phone] documented in this encounter Plan of Treatment Not on file documented as of this encounter Visit Diagnoses Not on filedocumented in this encounter Care Teams Efficiency Clerk Relationship Specialty Start Date End Date Ciera Sosa MD PCP - General 03/16/17 documented as of this encounter
[2024-07-08 10:26] VITALS: BP 147/86; PULSE 76; RESP 16; TEMP 36.9; O2SAT 98
--- NOTE | 2024-07-08 10:29 | WPDHPUPDATE1 ---
History and Physical Update Update Date/Time: 07/08/24 10:29 History and Physical has been reviewed, including an updated exam of the patient. There are NO changes in the patient's condition. Risks, benefits, and alternatives have been discussed and questions answered. Patient agrees to proceed with procedure.
--- NOTE | 2024-07-08 10:29 | W.PM.PROC2 ---
Procedure Note - Detailed Date of Procedure 07/08/24 Pre-op Diagnosis Lumbosacral Spondylosis w/o Myelopathy or Radicul Post-op Diagnosis Same Procedure Performed Diagnostic bilateral Lumbar Medial Branch/Dorsal Ramus Blocks at L3, L4, L5 Treating the bilateral L4-5, L5-S1 Facet Joints Under Fluoroscopic Guidance and with Contrast Control. (4 levels blocked). Surgeon Pradeep Lopes MD Manager Of Manufacturing None. Anesthesia Local Description of Procedure INFORMED CONSENT: Risks, benefits and alternatives to the procedure were discussed in detail with the patient who expressed explicit understanding and consent to proceed. Patient was informed verbally and in written form regarding the risks associated with the procedure including the low risk of serious infection, bleeding/bruising, allergic reaction, nerve or organ injury, paralysis, procedural site pain or discomfort, worsening pain and/or mobility, failure to treat and/or disfigurement. The patient expressed explicit understanding and consent to proceed. All materials required for the procedure were available prior to procedure start. Site and side were marked prior to procedure and confirmed in the presence of the patient. PROCEDURE IN DETAIL: The patient was brought to the procedural suite and placed in the prone position. Patient was made comfortable with use of pillows under the head/chest, hips and ankles. Skin overlying the injection site on the affected side(s) was prepared broadly with ChloraPrep applicator and draped in a sterile manner. Aseptic technique was used throughout. The endplates of the vertebral bodies at the site(s) of interest were aligned in the AP view. Ipsilateral oblique angulation was utilized to optimize visualization of the intersection between the superior articulating process and transverse process at each target site. Local anesthesia was established by infiltration with approximately 5 mL of 1% lidocaine via a 1-1/2 inch 27-gauge needle. A 25-gauge 3.5 inch Quincke spinal needle was advanced until the needle tip contacted periosteum at the target site, right L3. Lateral view was utilized to confirm the appropriate placement of the needle tip just anterior to the facet line and superior to the pedicle. In the Lateral view, 0.25 mL of Omnipaque 300 contrast medium was injected after negative aspiration for CSF, blood or other bodily fluid, showing appropriate extra-articular spread of contrast without evidence of intravascular, foraminal or intrathecal placement. A 0.5 mL solution of 0.5% PF bupivacaine was injected after negative repeat aspiration. Appropriate spread of the injectate was confirmed with washout of previously injected contrast. No parasthesias were elicited. Needle was removed completely intact without difficulty. The same exact procedure was repeated for all remaining levels on the ipsilateral side, right L4, L5 medial branches/dorsal ramus, modified as necessary to accommodate for the new target location with identical findings and results and no evidence of complication. The same exact procedure was repeated for all remaining levels on the contralateral side, left L3, L4, L5 medial branches/dorsal ramus, modified as necessary to accommodate for the new target location with identical findings and results and no evidence of complication. Images were saved and documented in the patient chart. Patient's skin was cleaned and sterile bandage applied. The patient tolerated the procedure well. The patient was transported to the recovery area in stable condition where they were observed for an appropriate amount of time prior to discharge, without evidence of complication. Patient was instructed on the appropriate completion of a pain diary over the next 12-24 hours. The patient was instructed to avoid excessive activity for the next 48 hours, including climbing and frequent use of stairs. Showers only for 48 hours. They were instructed not to drive or operate heavy machinery for 24 hours. They are to monitor for severe headaches, fevers, chills, night sweats, erythema/swelling at the site or any other signs of infection, bleeding/bruising, bowel or bladder changes as well as new pain, weakness or numbness in the upper or lower extremity. Should they notice these changes, they are instructed to call our office immediately or report directly to the nearest Emergency Department if no answer or if after posted office hours. COMPLICATIONS: None COMMENTS: None CONTRAST WASTED: 28.5mL Omnipaque 300. Complications No immediate complications Condition Stable Disposition Same day [facility]illing Surgery - Charge Forward: Surgery Billing
[2024-07-08 11:06] VITALS: BP 152/77; PULSE 74; RESP 19; O2SAT 96
[2024-07-08 11:15] VITALS: BP 144/71; PULSE 77; RESP 22; O2SAT 97
[2024-07-08] MEDS: BUPivacaine HCL 0.5% 10 ML AMP 5 ML INFILTRATE (11:16)
[2024-07-08] MEDS: LIDOCAINE 1% PF INJ 5 ML VIAL INFILTRATE (11:16)
[2024-07-08 11:20] VITALS: BP 154/81; PULSE 78; RESP 20; O2SAT 98
== END 2024-07-08 11:35 | disposition home or self-care (01) ==
PROVIDERS: PCP Family Medicine; Visit Provider Anesthesiology Pain Medicine
PROC: (CPT 64493; principal; 2024-07-08 12:00)
DX: M47.817 Spondylosis without myelopathy or radiculopathy, lumbosacral region (principal)
CPT/HCPCS: 64493 ×2; 64494 ×2; 64495 ×2; 99199

== ENCOUNTER 2024-08-18 06:42 | Day surgery (SDC) | payer OTHER, SELFPAY ==
--- NOTE | ~2024-08-18 | XR_ITS ---
INTRAOPERATIVE FLUOROSCOPY: CLINICAL HISTORY: 49 years old Female; DIAGNOSTIC PROGNOSTIC BILATERAL L3 L4 L5 MEDIAL BRANCH DORSA PROCEDURE COMMENTS: Limited intraoperative fluoroscopy of the lumbar spine was performed. CUMULATIVE DOSE: 11 mGy FLUOROSCOPY TIME: 50 seconds FINDINGS/IMPRESSION: Please refer to operative note for further details. Reviewed, dictated and finalized at location A.
[2024-08-18 07:45] VITALS: BMI 24.3
[2024-08-18 07:48] VITALS: BP 125/83; PULSE 81; RESP 16; TEMP 36.6; O2SAT 97
--- NOTE | 2024-08-18 07:49 | WPDHPUPDATE1 ---
History and Physical Update Update Date/Time: 08/18/24 07:49 History and Physical has been reviewed, including an updated exam of the patient. There are NO changes in the patient's condition. Risks, benefits, and alternatives have been discussed and questions answered. Patient agrees to proceed with procedure. Planned procedure today: Confirmatory bilateral L3, L4, L5 medial branch/dorsal ramus blocks (# 2) addressing the bilateral L4-5, L5-S1 facet joints under fluoroscopic guidance with contrast control.
--- NOTE | 2024-08-18 07:52 | P.OP_ITS ---
Procedure Note - Detailed Date of Procedure 08/18/24 Pre-op Diagnosis Spondylosis w/o Myelopathy or Radiculopathy, Post-op Diagnosis Same Procedure Performed Diagnostic bilateral Lumbar Medial Branch/Dorsal Ramus Blocks at L3, L4, L5 Brandon ating the bilateral L4-5, L5-S1 Facet Joints Under Fluoroscopic Guidance and with Contrast Control. (4 levels blocked). Surgeon Pradeep Lopes MD Necktie Maker None. Anesthesia Local Description of Procedure INFORMED CONSENT: Risks, benefits and alternatives to the procedure were discussed in detail with the patient who expressed explicit understanding and consent to proceed. Patient was informed verbally and in written form regarding the risks associated with the procedure including the low risk of serious infection, bleeding/bruising, allergic reaction, nerve or organ injury, paralysis, procedural site pain or discomfort, worsening pain and/or mobility, failure to treat and/or disfigurement. The patient expressed explicit understanding and consent to proceed. All materials required for the procedure were available prior to procedure start. Site and side were marked prior to procedure and confirmed in the presence of the patient. PROCEDURE IN DETAIL: The patient was brought to the procedural suite and placed in the prone position. Patient was made comfortable with use of pillows under the head/chest, hips and ankles. Skin overlying the injection site on the affected side(s) was prepared broadly with ChloraPrep applicator and draped in a sterile manner. Aseptic technique was used throughout. The endplates of the vertebral bodies at the site(s) of interest were aligned in the AP view. Ipsilat eral oblique angulation was utilized to optimize visualization of the intersection between the superior articulating process and transverse process at each target site. Local anesthesia was established by infiltration with approximately 5 mL of 1% lidocaine via a 1-1/2 inch 27-gauge needle. A 25-gauge 3.5 inch Quincke spinal needle was advanced until the needle tip contacted periosteum at the target site, right L3. Lateral view was utilized to confirm the appropriate placement of the needle tip just anterior to the facet line and superior to the pedicle. In the Lateral view, 0.25 mL of Omnipaque 300 contrast medium was injected after negative aspiration for CSF, blood or other bodily fluid, showing appropriate extra-articular spread of contrast without evidence of intravascular, foraminal or intrathecal placement. A 0.5 mL solution of 2.0% PF lidocaine was injected after negative repeat aspiration. Appropriate spread of the injectate was confirmed with washout of previously injected contrast. No parasthesias were elicited. Needle was removed completely intact without difficulty. The same exact procedure was repeated for all remaining levels on the ipsilateral side, right L4, L5 medial branches/dorsal ramus, modified as necessary to accommodate for the new target location with identical findings and results and no evidence of complication. The same exact procedure was repeated for all remaining levels on the contralateral side, left L3, L4, L5 medial branches/dorsal ramus, modified as necessary to accommodate for the new target location with identical findings and results and no evidence of complication. Images were saved and documented in the patient chart. Patient's skin was cleaned and sterile bandage applied. The patient tolerated the procedure well. The patient was transported to the recovery area in stable condition where they were observed for an appropriate amount of time prior to discharge, without evidence of complication. Patient was instructed on the appropriate completion of a pain diary over the next 12-24 hours. The patient was instructed to avoid excessive activity for the next 48 hours, including climbing and frequent use of stairs. Showers only for 48 hours. They were instructed not to drive or operate heavy machinery for 24 hours. They are to monitor for severe headaches, fevers, chills, night sweats, erythema/swelling at the site or any other signs of infection, bleeding/bruising, bowel or bladder changes as well as new pain, weakness or numbness in the upper or lower extremity. Should they notice these changes, they are instructed to call our office immediately or report directly to the nearest Emergency Department if no answer or if after posted office hours. COMPLICATIONS: None COMMENTS: None CONTRAST WASTED: 28.5mL Omnipaque 300. Complications No immediate complications Condition Stable Disposition Same day [facility]illing Surgery - Charge Forward: Surgery Billing
[2024-08-18 08:22] VITALS: BP 142/74; PULSE 70; RESP 10; O2SAT 96
[2024-08-18 08:30] VITALS: BP 143/83; PULSE 67; RESP 10; O2SAT 97
[2024-08-18 08:34] VITALS: BP 144/80; PULSE 69; RESP 9; O2SAT 96
[2024-08-18] MEDS: LIDOCAINE 1% PF INJ 5 ML VIAL INFILTRATE (08:36)
[2024-08-18] MEDS: LIDOCAINE 2% PF LOCAL INJ 5 ML VIAL INFILTRATE (08:37)
[2024-08-18 08:39] VITALS: BP 138/95; PULSE 77; RESP 18; O2SAT 99
== END 2024-08-18 08:50 | disposition home or self-care (01) ==
PROVIDERS: PCP Family Medicine; Visit Provider Anesthesiology Pain Medicine
PROC: (CPT 64493; principal; 2024-08-18 08:10)
DX: M47.817 Spondylosis without myelopathy or radiculopathy, lumbosacral region (principal)
CPT/HCPCS: 64493 ×2; 64494 ×2; 64495 ×2; 99199